=== PATIENT | male | born 1990 | race Caucasian/White ===

== ENCOUNTER 2021-02-23 16:35 | Emergency (ER) | payer OTHER, SELFPAY ==
--- NOTE | ~2021-02-23 | CT_ITS ---
EXAMINATION: CT abdomen pelvis wo con DATE: 02/23/2021 19:14 INDICATION: Nephrolithiasis presenting with left flank pain TECHNIQUE: Computed tomography (CT) of the abdomen and pelvis was performed without intravenous contr ast. Automated exposure control and iterative reconstruction technique were employed. The dose-length product was 765.31 mGy-cm. COMPARISON: 08/06/2012 FINDINGS: Lung bases are clear. Heart size is normal. No pericardial or pleural effusion. Small sliding-type hi atal hernia. Postoperative change of prior sleeve gastrectomy with suture line along the greater curv ature of the stomach. Liver, gallbladder, spleen, pancreas and bilateral adrenal glands are normal. S mall fat-containing umbilical hernia. Bowels including the appendix are normal. Bilateral nephrolithi asis with 11 stones in the left kidney measuring up to 2 mm and 6 stones in the right kidney measurin g up to 3 mm. No hydronephrosis or stones seen along the bilateral normal-appearing ureters. Bladder is normal. No free intraperitoneal gas or fluid. No pathologically enlarged abdominal or pelvic lymph adenopathy. Mild thoracic spondylosis. IMPRESSION: 1. Bilateral nonobstructing nephrolithiasis. No ureteral stones or hydronephrosis. 2. Small sliding-type hiatal hernia with change of prior sleeve gastrectomy. 3. Small fat-containing umbilical hernia.. Reviewed, dictated and finalized at location A. IMPRESSION: 1. Bilateral nonobstructing nephrolithiasis. No ureteral stones or hydronephros is. 2. Small sliding-type hiatal hernia with change of prior sleeve gastrectomy. 3. Small fat-containing umbilical hernia..
[2021-02-23 16:41] VITALS: BP 176/116; PULSE 63; RESP 18; TEMP 36.4; O2SAT 100
[2021-02-23 16:56] LABS: Basophils Absolute Auto 0.1 K/mm3 (0.0-0.1); Basophils Percent Auto 1.3 % (0.2-1.2); Eosinophils Absolute Auto 0.6 K/mm3 (0-0.3); Eosinophils Percent Auto 7.3 % (0-4.4); Hematocrit 38.8 % (42.0-52.0); Hemoglobin 12.1 g/dL (14.0-18.0); Immature Granulocyte Absolute 0.01 K/mm3 (0.00-0.031); Immature Granulocyte Percent A 0.1 % (0-0.5); Lymphocytes Absolute Auto 2.42 K/mm3 (0.9-3.2); Lymphocytes Percent Auto 31.7 % (18.3-44.2); Mean Corpuscular HGB Conc 31.2 g/dl (32-36); Mean Corpuscular Hemoglobin 26.1 pg (26-34); Mean Corpuscular Volume 83.8 fl (80-100); Mean Platelet Volume 9.5 fl (7.4-10.4); Monocytes Absolute Auto 0.6 K/mm3 (0.1-0.6); Monocytes Percent Auto 7.6 % (2.6-8.5); Platelet Count Result 344 k/mm3 (150-375); Red Blood Count 4.63 M/mm3 (4.6-6.20); Red Cell Distribution Width 14.7 % (11.5-14.5); White Blood Count 7.6 K/mm3 (4.5-10.0)
[2021-02-23 17:01] LABS: Add Urine Microscopic? YES; Appearance Urine Clear (Clear); Bilirubin Urine Negative (Negative); Blood Urine 3+ (Negative); Calcium Oxalate Crystals Urine Present /hpf; Color Urine Yellow (Yellow); Glucose Urine UA Negative (Negative); Ketones Urine Negative (Negative); Leukocyte Esterase Ur Trace LEU/UL (Negative); Nitrate Urine Negative (Negative); Protein Urine 1+ mg/dL (Negative); Squamous Epithelial Cell Urine Rare /hpf (Few); Urobilinogen Urine Negative mg/dL (<2.0)
[2021-02-23 17:06] LABS: Specific Grav Ur 1.034 (1.001-1.035)
[2021-02-23 17:07] LABS: Anion Gap 9 mmol/L (8-16); Blood Urea Nitrogen 14 mg/dL (9-20); Calcium 9.3 mg/dL (8.4-10.2); Carbon Dioxide 25 mmol/L (22-30); Chloride 106 mmol/L (98-107); Estimated CRCL calculation 147 ml/min; Estimated Glomerular Filt Rate > 60; Glucose 83 mg/dL (65-110); Potassium 4.2 mmol/L (3.4-5.0); Sodium 140 mmol/L (137-145)
[2021-02-23 18:20] VITALS: BP 155/101; PULSE 59; RESP 12; O2SAT 100
--- NOTE | 2021-02-23 19:07 | ED.GENADULT ---
HPI - General Adult General Chief complaint: Abdominal Pain Stated complaint: left flank pain Time Seen by Provider: 02/23/21 18:36 Source: patient Mode of arrival: ambulatory Limitations: no limitations History of Present Illness HPI narrative: Patient presents for evaluation of left flank pain for the last 3 to 4 days. He indicates he has a hx of kidney stones and this feels similar. However, typically pain associated with kidney stones lasts two days. He was concerned about duration of symptoms so he came here for further evaluation. Pain is constant, sharp and aching, constant in severity. No radiation component. He has experienced nausea without vomiting. No fever, chills, urinary symptoms, change in bowel pattern. Last bowel movement was 2 days ago. Surgical history is positive for gastric sleeve. He denies ETOH use. He tried taking ibuprofen and hydrocodone with modest improvement in his symptoms. Related Data Allergies Allergy/AdvReac Type Severity Reaction Status Date / Time No Known Allergies Allergy Verified 08/06/12 09:04 Review of Systems Review of Systems: CONSTITUTIONAL: Denies fever, chills, or sweats. EYES: Denies visual changes, redness, or discharge. ENT: Denies rhinorrhea, congestion, sore throat, or otalgia. CARDIOVASCULAR: Denies chest pain, palpitations, or edema. RESPIRATORY: Denies cough or dyspnea. GASTROINTESTINAL: Reports left flank pain and nausea. Denies vomiting and diarrhea GENITOURINARY: Denies dysuria or hematuria. SKIN: Denies rash or itching. MUSCULOSKELETAL: Denies back pain, joint pain, or myalgia. NEUROLOGIC: Denies headache, numbness, dizziness, or weakness. PSYCHIATRIC: Denies anxiety or depression. [facility] Past Medical History Medical History (Updated 02/23/21 @ 19:56 by ALLISON Ng, PAMELA) Anxiety Depression Hypertension Kidney stone Surgical History Surgical History History of gastric surgery Family History Family History Mother Diabetes mellitus Father Diabetes mellitus Social History Social History Substance use: never Living arrangements: with family Gender identity (if verbalized by the patient): Male Sexual Orientation (if Verbalized by the Patient): Straight or Heterosexual Spiritual care concerns: No Exam Narrative: GENERAL: Well-appearing, well-nourished, and in no acute distress. HEAD: Normocephalic, atraumatic. EYES: PERRLA and EOMI. ENT: Nares clear, no rhinorrhea or epistaxis. Mucous membranes moist. Oropharynx without tonsillar hypertrophy exudate or other lesions. Bilateral TMs pearly walker nonbulging NECK: Supple. No adenopathy or masses. No carotid bruits or JVD CHEST: Clear to auscultation. No respiratory distress. No wheezes rales or rhonchi HEART: Regular rate and rhythm. No murmur heard. Normal peripheral pulses. ABDOMEN: Soft, nondistended, normal active bowel sounds. No abdominal tenderness. No CVA tenderness EXTREMITIES: Normal range of motion. No edema. SKIN: Warm, dry, no rash. NEURO: No focal deficits. Alert and oriented x3. PSYCH: Normal mood and affect. Course Course Emergency Course: This is a 30-year-old male who presents with complaints of left flank pain. He has a history of kidney stones. CT showed multiple stones in both kidneys. Renal function was normal. He was given Toradol with mild improvement in his symptoms. We will discharge him with vamshi gilmore. Patient follow-up outpatient with urology return for worsening symptoms. Patient agreed with plan of care. Vital Signs Vital signs: Vital Signs Temperature 36.4 C 02/23/21 16:41 Pulse Rate 63 02/23/21 16:41 Respiratory Rate 18 02/23/21 16:41 Blood Pressure 176/116 H 02/23/21 16:41 Pulse Oximetry 100 02/23/21 16:41 Temperature 36.4 C 02/23
[2021-02-23 19:24] LABS: Alanine Aminotransferase 16 U/L (4-50); Albumin Level 4.3 g/dL (3.5-5.1); Alkaline Phosphatase 79 U/L (38-126); Aspartate Amino Transferase 30 U/L (17-59); Bilirubin,Total 0.2 mg/dL (0.2-1.3); Lipase 157 U/L (23-300)
[2021-02-23] MEDS: ONDANSETRON INJ 4 MG/2 ML VIAL IV PUSH (19:26)
[2021-02-23] MEDS: KETOROLAC 30 MG/ML VIAL (*BKC) IV PUSH (19:27)
[2021-02-23 20:40] VITALS: BP 163/103; PULSE 60; RESP 18; O2SAT 100
== END 2021-02-23 20:41 | disposition home or self-care (01) ==
PROVIDERS: Emergency Medicine; Emergency Provider Nurse Practitioner; PCP Nurse Practitioner Family
DX: N20.0 Calculus of kidney (principal); I10 Essential (primary) hypertension; Z87.442 Personal history of urinary calculi; Z98.84 Bariatric surgery status; K44.9 Diaphragmatic hernia without obstruction or gangrene; K42.9 Umbilical hernia without obstruction or gangrene
CPT/HCPCS: 36415; 74176; 80048; 80076; 81001; 83690; 85025; 96374; 96375; 99284; J1885; J2405

== ENCOUNTER 2021-02-28 21:23 | Emergency (ER) | payer OTHER, SELFPAY ==
--- NOTE | ~2021-02-28 | CT_ITS ---
EXAMINATION: CT abdomen pelvis wo con DATE: 02/28/2021 23:33 INDICATION: Left flank pain. History kidney stones. Hematuria. Nausea. TECHNIQUE: Computed tomography (CT) of the abdomen and pelvis was performed without intravenous contr ast. Automated exposure control and iterative reconstruction technique were employed. Exam dose: 571 .03 mGy-cm total exam DLP. COMPARISON: 02/23/2021 CT abdomen pelvis FINDINGS: The lung bases are clear. Normal heart size. No pericardial or pleural effusion. The liver, gallbladder, bile ducts, spleen, pancreas and pancreatic duct appear normal. Normal morpho logy of the adrenal glands. Bilateral nonobstructive nephrolithiasis. There are scattered bilateral small renal calculi, the larg est measuring up to approximately 4.7 mm but most of the calculi much smaller than that. No There is an approximately 2.7 mm calculus of the proximal left ureter at the L4-5 level, without hydr oureteronephrosis. The urinary bladder and prostate gland are unremarkable. Normal caliber of the abdominal aorta. No intraperitoneal or retroperitoneal or pelvic mass lesion or adenopathy or ascites. There is a small sliding hiatal hernia. There is postoperative change of the stomach. Normal appendix. No bowel obstruction or free air. Included skeletal structures are unremarkable. IMPRESSION: 7 mm proximal left ureteral calculus at L4-5 level, without hydroureteronephrosis Bilateral nonobstructive nephrolithiasis Small sliding hiatal hernia Postoperative change of the stomach Normal appendix Reviewed, dictated and finalized at [facility]. Reviewed, dictated and finalized at location A. IMPRESSION: 7 mm proximal left ureteral calculus at L4-5 level, without hydroureteronephros is Bilateral nonobstructive nephrolithiasis Small sliding hiatal hernia Postoperative change of the stomach Normal appendix
[2021-02-28 21:36] VITALS: BP 146/87; PULSE 99; RESP 18; TEMP 36.3; O2SAT 99
[2021-02-28 21:56] LABS: Basophils Absolute Auto 0.1 K/mm3 (0.0-0.1); Basophils Percent Auto 0.7 % (0.2-1.2); Eosinophils Absolute Auto 0.3 K/mm3 (0-0.3); Eosinophils Percent Auto 4.2 % (0-4.4); Hematocrit 37.7 % (42.0-52.0); Hemoglobin 11.9 g/dL (14.0-18.0); Immature Granulocyte Absolute 0.01 K/mm3 (0.00-0.031); Immature Granulocyte Percent A 0.1 % (0-0.5); Lymphocytes Percent Auto 23.3 % (18.3-44.2); Mean Corpuscular HGB Conc 31.6 g/dl (32-36); Mean Corpuscular Volume 82.5 fl (80-100); Mean Platelet Volume 10.1 fl (7.4-10.4); Monocytes Absolute Auto 0.6 K/mm3 (0.1-0.6); Monocytes Percent Auto 7.2 % (2.6-8.5); Neutrophils Absolute Auto 5.3 K/mm3 (1.3-6.7); Neutrophils Percent Auto 64.5 % (45.5-73.1); Platelet Count Result 365 k/mm3 (150-375); Red Blood Count 4.57 M/mm3 (4.6-6.20); Red Cell Distribution Width 14.6 % (11.5-14.5); White Blood Count 8.2 K/mm3 (4.5-10.0)
[2021-02-28 22:11] LABS: Anion Gap 12 mmol/L (8-16); Blood Urea Nitrogen 16 mg/dL (9-20); Carbon Dioxide 22 mmol/L (22-30); Chloride 103 mmol/L (98-107); Estimated CRCL calculation 146 ml/min; Estimated Glomerular Filt Rate > 60; Glucose 92 mg/dL (65-110); Potassium 3.7 mmol/L (3.4-5.0); Sodium 137 mmol/L (137-145)
[2021-02-28 22:16] LABS: Add Urine Microscopic? YES; Amorphous Sediment Urine Few; Appearance Urine Cloudy (Clear); Bilirubin Urine Negative (Negative); Blood Urine 3+ (Negative); Calcium Oxalate Crystals Urine Present /hpf; Color Urine Amber (Yellow); Glucose Urine UA Negative (Negative); Ketones Urine Negative (Negative); Leukocyte Esterase Ur Trace LEU/UL (Negative); Mucus Urine Heavy /lpf; Nitrate Urine Negative (Negative); Protein Urine 2+ mg/dL (Negative); RBC Urine >75 /hpf (0-2); Specific Grav Ur 1.028 (1.001-1.035); WBC Urine 0-3 /hpf
[2021-02-28 22:26] VITALS: BP 157/100; PULSE 87; RESP 18; O2SAT 98
[2021-02-28 23:33] VITALS: BP 140/106; PULSE 76; RESP 16; O2SAT 98
[2021-02-28] MEDS: MORPHINE SULFATE (*CRX) 4 MG/ML INJ IV PUSH (23:36)
[2021-02-28] MEDS: SODIUM CHLORIDE 0.9% IV 1,000 ML 999 ML IV CONT (23:36)
--- NOTE | 2021-03-01 00:26 | ED.ABDPAIN ---
HPI - Abdominal Pain General Chief Complaint: Abdominal Pain Stated Complaint: kidney stones Time Seen by Provider: 02/28/21 23:02 History of Present Illness HPI narrative: Patient presents with left flank pain. Pain reports he was seen approximately 1 week ago for similar pain and imaging is told he had kidney stones. He was initially doing okay however he had a sudden onset of pain this morning has been getting worse throughout the day so he wanted come back in for evaluation. His concern was he was passing another kidney stone. Reports some nausea but no vomiting denies any diarrhea denies any fevers denies any dysuria or hematuria. Related Data Home Medications Medication Instructions Recorded Confirmed bupropion HCl mg PO 02/28/21 bupropion HCl [Wellbutrin] 75 mg PO TID 02/28/21 clotrimazole mg 02/28/21 losartan 02/28/21 montelukast mg 02/28/21 sertraline mg 02/28/21 Allergies Allergy/AdvReac Type Severity Reaction Status Date / Time No Known Allergies Allergy Verified 02/28/21 22:28 Review of Systems Review of Systems: CONSTITUTIONAL: Denies fever, chills, or sweats. EYES: Denies visual changes, redness, or discharge. ENT: Denies rhinorrhea, congestion, sore throat, or otalgia. CARDIOVASCULAR: Denies chest pain, palpitations, or edema. RESPIRATORY: Denies cough or dyspnea. GASTROINTESTINAL: Denies vomiting, or diarrhea. GENITOURINARY: Denies dysuria or hematuria. SKIN: Denies rash or itching. MUSCULOSKELETAL: Denies joint pain, or myalgia. NEUROLOGIC: Denies headache, numbness, dizziness, or weakness. PSYCHIATRIC: Denies anxiety or depression. All systems reviewed & are unremarkable except as noted in HPI and below [facility] Past Medical History Medical History Anxiety Depression Hypertension Kidney stone Surgical History Surgical History History of gastric surgery Family History Family History Mother Diabetes mellitus Father Diabetes mellitus Social History Social History Substance use: never Gender identity (if verbalized by the patient): Male Spiritual care concerns: No Exam Narrative: GENERAL: Well-appearing, well-nourished, and in no acute distress. HEAD: Normocephalic, atraumatic. EYES: PERRLA and EOMI. ENT: Nares clear, no rhinorrhea or epistaxis. Mucous membranes moist. NECK: Supple. No masses. No JVD ABDOMEN: Soft, nontender, nondistended, normal active bowel sounds. EXTREMITIES: Normal range of motion. No edema. SKIN: Warm, dry, no rash. NEURO: No focal deficits. Alert and oriented x3. PSYCH: Normal mood and affect. Course Reevaluation(s) Reevaluation #1: Patient is resing more comfortably, results reviewed with patient. Pt has urology follow up schedule on 03/04/2021 Date: 03/01/21 Time: 00:29 Vital Signs Vital signs: Vital Signs Temperature 36.3 C L 02/28/21 21:36 Pulse Rate 99 02/28/21 21:36 Respiratory Rate 18 02/28/21 21:36 Blood Pressure 146/87 H 02/28/21 21:36 Pulse Oximetry 99 02/28/21 21:36 Temperature 36.3 C L 02/28/21 21:36 Pulse Rate 71 03/01/21 01:12 Respiratory Rate 17 03/01/21 01:12 Blood Pressure 140/91 H 03/01/21 01:12 Pulse Oximetry 100 03/01/21 01:12 MDM - Abdominal Pain MDM Narrative Medical decision making narrative: H&P as above, vs with mild hypertension, pt looks clinically well, exam pain, labs with hematuria otherwise clinically unremarkable, img with new proximal stone, additional labs/img considered, symptomatic relief available as needed, on reevaluation pt continues to looks clinically well. Suspect ureteral stone, dns infected stone. Patient is already scheduled follow-up with urology pain instructed to continue analgesia: And follow-up with urology. Lab Data Result diagr
[2021-03-01 01:12] VITALS: BP 140/91; PULSE 71; RESP 17; O2SAT 100
== END 2021-03-01 01:13 | disposition home or self-care (01) ==
PROVIDERS: Emergency Medicine; Emergency Provider Emergency Medicine; PCP Nurse Practitioner Family
DX: N20.2 Calculus of kidney with calculus of ureter (principal); I10 Essential (primary) hypertension; F41.9 Anxiety disorder, unspecified; F32.9 Major depressive disorder, single episode, unspecified; Z87.442 Personal history of urinary calculi; K44.9 Diaphragmatic hernia without obstruction or gangrene
CPT/HCPCS: 36415; 74176; 80048; 81001; 85025; 96361; 96374; 99284; J2270; J7030

== ENCOUNTER 2021-07-23 18:00 | Emergency (ER) | payer OTHER, SELFPAY ==
--- NOTE | ~2021-07-23 | CT_ITS ---
EXAMINATION: CT abdomen pelvis w con INDICATION: Left upper abdominal pain TECHNIQUE: Computed tomographic images of the abdomen and pelvis were obtained after the administrati on of 100 cc of Omnipaque 350 intravenous contrast. The dose-length product (DLP) was 1199.29 mGy-cm. Automated exposure control and iterative reconstruction technique were employed. COMPARISON: 02/28/2021 FINDINGS: The lung bases are clear. The heart size is normal. There are surgical changes of gastric s leeve procedure. The liver, spleen, pancreas, gallbladder, and adrenal glands are normal. There are n onobstructing stones of the kidneys which measure up to 3 mm on the right and 4 mm on the left. There is a 1.7 cm cyst of the left kidney. There is a 5 mm stone in the proximal right ureter at the urete ropelvic junction. There is a 4 mm stone of the left mid ureter. No pathologically enlarged abdominal or pelvic lymph nodes are identified. There is no free intraperitoneal gas or evidence of bowel obst ruction. The appendix is normal. There is a small fat-containing umbilical hernia. IMPRESSION: 1. 5 mm stone in the right proximal ureter at the ureteropelvic junction. 2. 4 mm stone of the left mid ureter. 3. Bilateral nonobstructing nephrolithiasis. Reviewed, dictated and finalized at location F. SSESSION AGENT
[2021-07-23 18:19] VITALS: BP 146/95; PULSE 81; RESP 17; TEMP 36.1; O2SAT 100
[2021-07-23 18:44] LABS: Basophils Absolute Auto 0.1 K/mm3 (0.0-0.1); Basophils Percent Auto 1.2 % (0.2-1.2); Eosinophils Absolute Auto 0.7 K/mm3 (0-0.3); Hematocrit 37.3 % (42.0-52.0); Hemoglobin 11.9 g/dL (14.0-18.0); Immature Granulocyte Absolute 0.01 K/mm3 (0.00-0.031); Immature Granulocyte Percent A 0.2 % (0-0.5); Lymphocytes Absolute Auto 1.96 K/mm3 (0.9-3.2); Lymphocytes Percent Auto 29.8 % (18.3-44.2); Mean Corpuscular HGB Conc 31.9 g/dl (32-36); Mean Corpuscular Hemoglobin 26.3 pg (26-34); Mean Corpuscular Volume 82.5 fl (80-100); Mean Platelet Volume 9.7 fl (7.4-10.4); Monocytes Absolute Auto 0.5 K/mm3 (0.1-0.6); Monocytes Percent Auto 6.8 % (2.6-8.5); Neutrophils Absolute Auto 3.4 K/mm3 (1.3-6.7); Platelet Count Result 306 k/mm3 (150-375); Red Blood Count 4.52 M/mm3 (4.6-6.20); Red Cell Distribution Width 16.1 % (11.5-14.5); White Blood Count 6.6 K/mm3 (4.5-10.0)
[2021-07-23 18:53] LABS: Add Urine Microscopic? YES; Appearance Urine Cloudy (Clear); Bilirubin Urine Negative (Negative); Blood Urine 3+ (Negative); Color Urine Red (Yellow); Glucose Urine UA Negative (Negative); Ketones Urine Negative (Negative); Leukocyte Esterase Ur Negative LEU/UL (Negative); Mucus Urine Moderate /lpf; Nitrate Urine Negative (Negative); Protein Urine 2+ mg/dL (Negative); RBC Urine >75 /hpf (0-2); Specific Grav Ur 1.028 (1.001-1.035)
[2021-07-23 18:54] LABS: Alanine Aminotransferase 23 U/L (4-50); Albumin Level 4.4 g/dL (3.5-5.1); Alkaline Phosphatase 74 U/L (38-126); Anion Gap 10 mmol/L (8-16); Aspartate Amino Transferase 31 U/L (17-59); Bilirubin,Total 0.2 mg/dL (0.2-1.3); Blood Urea Nitrogen 15 mg/dL (9-20); Calcium 9.1 mg/dL (8.4-10.2); Carbon Dioxide 24 mmol/L (22-30); Chloride 105 mmol/L (98-107); Estimated CRCL calculation 161 ml/min; Estimated Glomerular Filt Rate > 60; Glucose 86 mg/dL (65-110); Lipase 109 U/L (23-300); Potassium 4.1 mmol/L (3.4-5.0); Sodium 139 mmol/L (137-145)
[2021-07-23 20:19] VITALS: BP 159/103; PULSE 85; RESP 18; O2SAT 99
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
[2021-07-23] MEDS: SODIUM CHLORIDE 0.9% IV 1,000 ML 999 ML IV CONT (21:49)
[2021-07-23] MEDS: ONDANSETRON INJ 4 MG/2 ML VIAL IV PUSH (21:49)
[2021-07-23] MEDS: HYDROmorphone HCL INJ (*CRX) 1 MG/ML SYR IV PUSH (21:49)
[2021-07-23 21:55] VITALS: BP 151/100; PULSE 73; RESP 16; O2SAT 100
[2021-07-23] MEDS: TAMSULOSIN HCL 0.4 MG CAPSULE PO (23:21)
[2021-07-23 23:35] VITALS: PULSE 80; RESP 18
[2021-07-23] MEDS: oxyCODONE/ACETAMINOPHEN (*CRX) 5-325 MG TABLET 2 TABLET PO (23:35)
== END 2021-07-23 23:36 | disposition home or self-care (01) ==
PROVIDERS: Emergency Medicine; Emergency Provider General Practice; PCP Family Medicine
DX: N20.2 Calculus of kidney with calculus of ureter (principal); R07.81 Pleurodynia; I10 Essential (primary) hypertension; E78.2 Mixed hyperlipidemia; D64.9 Anemia, unspecified; F41.9 Anxiety disorder, unspecified; F32.A Depression, unspecified; G47.33 Obstructive sleep apnea (adult) (pediatric); Z86.16 Personal history of COVID-19; Z87.442 Personal history of urinary calculi
CPT/HCPCS: 36415; 74177; 80053; 81001; 83690; 85025; 96361; 96374; 96375; 99284; A9270; J1170; J2405; J7030; Q9967

== ENCOUNTER 2022-04-13 15:37 | Emergency (ER) | payer OTHER, SELFPAY ==
--- NOTE | ~2022-04-13 | CT_ITS ---
EXAMINATION: CT abdomen pelvis wo con DATE: 04/13/2022 16:39 INDICATION: right flank pain TECHNIQUE: Computed tomography (CT) of the abdomen and pelvis was performed without intravenous contr ast. Automated exposure control and iterative reconstruction technique were employed. The dose-length product was 480.64 mGy-cm. COMPARISON: 07/23/2021 and . FINDINGS: Lower thorax: Unremarkable Liver: Normal. Biliary/Gallbladder: Gallbladder is normal. No bile duct dilation. Pancreas: No mass or duct dilation. Spleen: Normal. Adrenals:No mass. Kidneys: Multiple nonobstructing punctate and 2-3 mm renal calculi. No suspicious mass. No hydronephr osis. GI tract: Small hiatal hernia. Prior gastric surgery. The rectum is dilated to 6.5 cm by partially fo rmed stool. Short segment circumferential wall thickening at the rectosigmoid junction. Normal append ix. Mesentery/Peritoneum: No ascites, mass, or free air. Retroperitoneum: No mass. Pelvis: No distal collecting system stone. Mild bladder wall thickening. Soft Tissues: Soft tissues and body wall unremarkable. Bones: No acute osseous finding. IMPRESSION: Short segment circumferential wall thickening at the rectosigmoid junction, likely causing or contrib uting to the apparent mild fecal impaction. This may represent infectious, inflammatory, or neoplasti c change. Recommend timely outpatient gastroenterology referral for endoscopy. Reviewed, dictated and finalized at location K. IMPRESSION: Short segment circumferential wall thickening at the rectosigmoid junction, lik joo causing or contributing to the apparent mild fecal impaction. This may repr esent infectious, inflammatory, or neoplastic change. Recommend timely outpatie nt gastroenterology referral for endoscopy.
[2022-04-13 15:45] VITALS: BP 156/105; PULSE 85; RESP 16; TEMP 36.4; O2SAT 100
[2022-04-13 15:55] LABS: Appearance Urine Clear (Clear); Bilirubin Urine Negative (Negative); Blood Urine 1+ (Negative); Color Urine Yellow (Yellow); Glucose Urine UA Negative (Negative); Ketones Urine Negative (Negative); Leukocyte Esterase Ur Negative LEU/UL (Negative); Nitrate Urine Negative (Negative); Protein Urine Negative (Negative); Urobilinogen Urine 0.2 mg/dL (<2.0)
--- NOTE | 2022-04-13 16:00 | ED.BACK ---
HPI - Back Pain/Injury General Chief Complaint: Back Pain/Injury Stated Complaint: middle back pain Time Seen by Provider: 04/13/22 15:41 History of Present Illness HPI Narrative: 31-year-old male with a history of kidney stones and back pain presents to the emergency room with a sudden onset of right flank pain. Patient states he recently passed a kidney stone and believes he may be experiencing another. Patient states the pain Radiates around to the front. Related Data Home Medications Medication Instructions Recorded Confirmed buspirone 15 mg tablet 15 mg PO TID 04/18/21 05/23/21 Allergies Allergy/AdvReac Type Severity Reaction Status Date / Time No Known Allergies Allergy Verified 04/13/22 15:50 Review of Systems Review of Systems: CONSTITUTIONAL: Denies fever, chills, or sweats. EYES: Denies visual changes, redness, or discharge. ENT: Denies rhinorrhea, congestion, sore throat, or otalgia. CARDIOVASCULAR: Denies chest pain, palpitations, or edema. RESPIRATORY: Denies cough or dyspnea. GASTROINTESTINAL: Reports right flank pain, nausea GENITOURINARY: Denies dysuria or hematuria. SKIN: Denies rash or itching. MUSCULOSKELETAL: Denies back pain, joint pain, or myalgia. NEUROLOGIC: Denies headache, numbness, dizziness, or weakness. PSYCHIATRIC: Denies anxiety or depression. [facility] Past Medical History Medical History (Updated 09/23/21 @ 12:32 by Willam Wright MD) Acute non-recurrent maxillary sinusitis Adult BMI 38.0-38.9 kg/sq m Anemia (02/23/21) hemoglobin 12.1 with hematocrit 38.8 and MCV 83.8 in the ER on 03/26/2021 Anxiety BMI 37.0-37.9, adult Chronic low back pain without sciatica Chronic thoracic back pain COVID-19 (~08/17/20) COVID illness around 08/17/2020 with subsequent vaccination with 3 shots of Pfizer Depression Hypertension Kidney stone Migraine without aura and without status migrainosus, not intractable Mixed hyperlipidemia Obstructive sleep apnea Radiculitis of left cervical region Surgical History Surgical History History of gastric surgery Family History Family History Mother Diabetes mellitus Father Diabetes mellitus Social History Social History Smoking status: Never smoker Alcohol intake: never Substance use: never Substance use type: does not use Gender identity (if verbalized by the patient): Male Sexual Orientation (if Verbalized by the Patient): Straight or Heterosexual Spiritual care concerns: No Exam Narrative: GENERAL: Well-appearing, well-nourished, no physical limitations, and in no acute distress. HEAD: Normocephalic, atraumatic. EYES: Conjunctivae normal, PERRLA and EOMI. CHEST: Clear to auscultation. No respiratory distress. No wheezes rales or rhonchi. HEART: Regular rate and rhythm. No murmur heard. Normal peripheral pulses. ABDOMEN: Soft, nontender, nondistended, normal active bowel sounds. BACK: Right CVA tenderness; No cervical/thoracic/lumbar tenderness EXTREMITIES: Normal range of motion. No edema. No clubbing or cyanosis SKIN: Warm, dry, no rash. No noted wounds NEURO: No focal deficits. Alert and oriented x3. MAEW. CN's II-XI intact bilaterally, normal gait PSYCH: Cooperative. Normal mood and affect. Course Vital Signs Vital signs: Vital Signs Temperature 36.4 C L 04/13/22 15:45 Pulse Rate 85 04/13/22 15:45 Respiratory Rate 16 04/13/22 15:45 Blood Pressure 156/105 H 04/13/22 15:45 Pulse Oximetry 100 04/13/22 15:45 Temperature 36.4 C L 04/13/22 15:45 Pulse Rate 85 04/13/22 15:45 Respiratory Rate 16 04/13/22 15:45 Blood Pressure 156/105 H 04/13/22 15:45 Pulse Oximetry 100 04/13/22 15:45 MDM - Back Pain/Injury Lab Data Labs: Lab Results 04/13/22 Range/Units 15:47 Urine Color Yellow (Yellow) Urine Ap
[2022-04-13 16:02] LABS: Mucus Urine Rare /lpf; RBC Urine 21-50 /hpf (0-2); WBC Urine 0-3 /hpf
[2022-04-13 16:10] LABS: Add Urine Microscopic? YES
[2022-04-13 16:20] LABS: Basophils Absolute Auto 0.1 K/mm3 (0.0-0.1); Eosinophils Absolute Auto 0.2 K/mm3 (0-0.3); Eosinophils Percent Auto 3.7 % (0-4.4); Hemoglobin 10.6 g/dL (14.0-18.0); Immature Granulocyte Absolute 0.01 K/mm3 (0.00-0.031); Immature Granulocyte Percent A 0.2 % (0-0.5); Lymphocytes Absolute Auto 1.57 K/mm3 (0.9-3.2); Lymphocytes Percent Auto 25.5 % (18.3-44.2); Mean Corpuscular HGB Conc 30.3 g/dl (32-36); Mean Corpuscular Hemoglobin 25.3 pg (26-34); Mean Corpuscular Volume 83.5 fl (80-100); Monocytes Absolute Auto 0.5 K/mm3 (0.1-0.6); Monocytes Percent Auto 7.3 % (2.6-8.5); Neutrophils Absolute Auto 3.8 K/mm3 (1.3-6.7); Neutrophils Percent Auto 62.3 % (45.5-73.1); Platelet Count Result 374 k/mm3 (150-375); Red Blood Count 4.19 M/mm3 (4.6-6.20); Red Cell Distribution Width 14.4 % (11.5-14.5); White Blood Count 6.2 K/mm3 (4.5-10.0)
[2022-04-13 16:29] LABS: Alanine Aminotransferase 18 U/L (6-50); Albumin Level 4.4 g/dL (3.5-5.1); Alkaline Phosphatase 58 U/L (38-126); Anion Gap 10 mmol/L (8-16); Aspartate Amino Transferase 27 U/L (17-59); Bilirubin,Total 0.6 mg/dL (0.2-1.3); Blood Urea Nitrogen 10 mg/dL (9-20); Carbon Dioxide 27 mmol/L (22-30); Chloride 103 mmol/L (98-107); Estimated CRCL calculation 143 ml/min; Estimated Glomerular Filt Rate > 60; Glucose 94 mg/dL (65-110); Potassium 3.5 mmol/L (3.4-5.0); Sodium 140 mmol/L (137-145)
[2022-04-13] MEDS: SODIUM CHLORIDE 0.9% IV 1,000 ML 999 ML IV CONT (16:31)
[2022-04-13] MEDS: ONDANSETRON INJ 4 MG/2 ML VIAL IV PUSH (17:05)
[2022-04-13] MEDS: KETOROLAC 30 MG/ML VIAL (*BKC) IV PUSH (17:05)
[2022-04-13 18:27] VITALS: BP 142/86; PULSE 86; RESP 16; O2SAT 99
== END 2022-04-13 18:28 | disposition home or self-care (01) ==
PROVIDERS: Emergency Provider Nurse Practitioner Family; PCP Nurse Practitioner Family
DX: K59.00 Constipation, unspecified (principal); D64.9 Anemia, unspecified; I10 Essential (primary) hypertension; E78.2 Mixed hyperlipidemia; G47.33 Obstructive sleep apnea (adult) (pediatric); F41.9 Anxiety disorder, unspecified; F32.A Depression, unspecified; Z86.16 Personal history of COVID-19; Z87.442 Personal history of urinary calculi
CPT/HCPCS: 36415; 74176; 80053; 81001; 85025; 96361; 96374; 96375; 99284; J1885; J2405; J7030

== ENCOUNTER 2022-07-19 17:09 | Emergency (ER) | payer OTHER, SELFPAY ==
--- NOTE | ~2022-07-19 | CT_ITS ---
EXAMINATION: CT abdomen pelvis wo con DATE: 07/19/2022 17:48 INDICATION: rt flank pain, hx of kidney stones TECHNIQUE: Computed tomography (CT) of the abdomen and pelvis was performed without intravenous contr ast. Automated exposure control and iterative reconstruction technique were employed. The dose-length product was 466.12 mGy-cm. COMPARISON: 04/13/2022. FINDINGS: Lower thorax: Small hiatal hernia. Liver: Normal. Biliary/Gallbladder: Gallbladder is normal. No bile duct dilation. Pancreas: No mass or duct dilation. Spleen: Normal. Adrenals:No mass. Kidneys: Multiple nonobstructing bilateral renal calcifications. Mild proximal right hydronephrosis. 4 mm proximal right ureteral stone GI tract: Prior gastric surgery. No small or large bowel dilation. Improved rectosigmoid wall thicken ing. Normal appendix. Mesentery/Peritoneum: No ascites, mass, or free air. Retroperitoneum: No mass. Pelvis: Pelvic organs are within normal limits. Soft Tissues: Soft tissues and body wall unremarkable. Bones: No acute osseous finding. IMPRESSION: 4 mm proximal right ureteral stone causing mild obstructive uropathy. Reviewed, dictated and finalized at location K. CULOTHERAPIST
[2022-07-19 17:12] VITALS: BP 159/79; PULSE 92; RESP 16; TEMP 36.6; O2SAT 98
--- NOTE | 2022-07-19 17:24 | ED.MALEGU ---
HPI - Male Genitourinary General Chief complaint: Urogenital-Male Stated complaint: kidney stone Time Seen by Provider: 07/19/22 17:18 History of Present Illness HPI Narrative: 32-year-old male history of kidney stones, hypertension, anxiety depression, YANETH presents to the emergency room for evaluation of sudden onset of right flank pain. States pain has been present for 2 to 3 hours, radiates into his right groin. Reports he noticed hematuria last night. Last kidney stone was about 4 months ago. Associated with nausea and occasional vomiting. Related Data Home Medications Medication Instructions Recorded Confirmed buspirone 15 mg tablet 15 mg PO TID 04/18/21 05/23/21 Allergies Allergy/AdvReac Type Severity Reaction Status Date / Time No Known Allergies Allergy Verified 04/13/22 15:50 Review of Systems Review of Systems: CONSTITUTIONAL: Denies fever, chills, or sweats. EYES: Denies visual changes, redness, or discharge. ENT: Denies rhinorrhea, congestion, sore throat, or otalgia. CARDIOVASCULAR: Denies chest pain, palpitations, or edema. RESPIRATORY: Denies cough or dyspnea. GASTROINTESTINAL: Reports right flank pain, nausea, vomiting GENITOURINARY: Denies dysuria or hematuria. SKIN: Denies rash or itching. MUSCULOSKELETAL: Denies back pain, joint pain, or myalgia. NEUROLOGIC: Denies headache, numbness, dizziness, or weakness. PSYCHIATRIC: Denies anxiety or depression. [facility] Past Medical History Medical History Acute non-recurrent maxillary sinusitis Adult BMI 38.0-38.9 kg/sq m Anemia (02/23/21) hemoglobin 12.1 with hematocrit 38.8 and MCV 83.8 in the ER on 03/26/2021 Anxiety BMI 37.0-37.9, adult Chronic low back pain without sciatica Chronic thoracic back pain COVID-19 (~08/17/20) COVID illness around 08/17/2020 with subsequent vaccination with 3 shots of Pfizer Depression Hypertension Kidney stone Migraine without aura and without status migrainosus, not intractable Mixed hyperlipidemia Obstructive sleep apnea Radiculitis of left cervical region Surgical History Surgical History History of gastric surgery Family History Family History Mother Diabetes mellitus Father Diabetes mellitus Social History Social History Smoking status: Never smoker Alcohol intake: never Substance use: never Substance use type: does not use Gender identity (if verbalized by the patient): Male Sexual Orientation (if Verbalized by the Patient): Straight or Heterosexual Spiritual care concerns: No Exam Narrative: GENERAL: Uncomfortable appearing HEAD: Normocephalic, atraumatic. EYES: Conjunctivae normal, PERRLA and EOMI. CHEST: Clear to auscultation. No respiratory distress. No wheezes rales or rhonchi. HEART: Regular rate and rhythm. No murmur heard. Normal peripheral pulses. ABDOMEN: Soft, nontender, nondistended, normal active bowel sounds. BACK: Right CVA tenderness EXTREMITIES: Normal range of motion. No edema. No clubbing or cyanosis SKIN: Warm, dry, no rash. No noted wounds NEURO: No focal deficits. Alert and oriented x3. MAEW. CN's II-XI intact bilaterally, normal gait PSYCH: Cooperative. Normal mood and affect. Course Course Emergency Course: 1939: Consulted with MD Bravo. He recommends patient be admitted for overnight observation. Discussed with Dr. Bravo that the patient was adamant about going home. He stated he will attempt to see the patient in his office on Thursday. Vital Signs Vital signs: Vital Signs Temperature 36.6 C 07/19/22 17:12 Pulse Rate 92 07/19/22 17:12 Respiratory Rate 16 07/19/22 17:12 Blood Pressure 159/79 H 07/19/22 17:12 Pulse Oximetry 98 07/19/22 17:12 Temperature 36.6 C 07/19/22 17:12 Pulse Rate 92 07/19/22 17
[2022-07-19] MEDS: ONDANSETRON INJ 4 MG/2 ML VIAL IV PUSH (18:00)
[2022-07-19] MEDS: SODIUM CHLORIDE 0.9% IV 1,000 ML 999 ML IV CONT ×2 (18:00→19:06)
[2022-07-19] MEDS: KETOROLAC 30 MG/ML VIAL (*BKC) IV PUSH (18:00)
[2022-07-19] MEDS: HYDROmorphone HCL INJ (*CRX) 1 MG/ML SYR IV PUSH (18:00)
[2022-07-19 18:01] LABS: Add Urine Microscopic? YES; Appearance Urine Clear (Clear); Bilirubin Urine 1+ (Negative); Blood Urine 3+ (Negative); Color Urine Yellow (Yellow); Glucose Urine UA Negative (Negative); Ketones Urine Negative (Negative); Leukocyte Esterase Ur Negative LEU/UL (Negative); Nitrate Urine Positive (Negative); Protein Urine 1+ mg/dL (Negative); Specific Grav Ur >= 1.030 (1.001-1.035); pH Urine 5.5 (5.0-9.0)
[2022-07-19 18:10] LABS: Basophils Absolute Auto 0.1 K/mm3 (0.0-0.1); Basophils Percent Auto 0.9 % (0.2-1.2); Eosinophils Absolute Auto 0.6 K/mm3 (0-0.3); Eosinophils Percent Auto 7.1 % (0-4.4); Hematocrit 42.3 % (42.0-52.0); Hemoglobin 13.4 g/dL (14.0-18.0); Immature Granulocyte Absolute 0.02 K/mm3 (0.00-0.031); Immature Granulocyte Percent A 0.3 % (0-0.5); Lymphocytes Absolute Auto 1.88 K/mm3 (0.9-3.2); Lymphocytes Percent Auto 24.3 % (18.3-44.2); Mean Corpuscular HGB Conc 31.7 g/dl (32-36); Mean Corpuscular Hemoglobin 28.3 pg (26-34); Mean Corpuscular Volume 89.2 fl (80-100); Mean Platelet Volume 9.8 fl (7.4-10.4); Monocytes Absolute Auto 0.5 K/mm3 (0.1-0.6); Monocytes Percent Auto 6.5 % (2.6-8.5); Neutrophils Absolute Auto 4.7 K/mm3 (1.3-6.7); Neutrophils Percent Auto 60.9 % (45.5-73.1); Platelet Count Result 286 k/mm3 (150-375); Red Blood Count 4.74 M/mm3 (4.6-6.20); Red Cell Distribution Width 16.5 % (11.5-14.5); White Blood Count 7.7 K/mm3 (4.5-10.0)
[2022-07-19 18:13] LABS: Mucus Urine Rare /lpf; RBC Urine >75 /hpf (0-2); WBC Urine 0-3 /hpf
[2022-07-19 18:23] LABS: Alanine Aminotransferase 38 U/L (6-50); Albumin Level 4.6 g/dL (3.5-5.1); Alkaline Phosphatase 70 U/L (38-126); Anion Gap 9 mmol/L (8-16); Aspartate Amino Transferase 45 U/L (17-59); Bilirubin,Total 0.3 mg/dL (0.2-1.3); Blood Urea Nitrogen 14 mg/dL (9-20); Carbon Dioxide 28 mmol/L (22-30); Chloride 99 mmol/L (98-107); Estimated CRCL calculation 141 ml/min; Estimated Glomerular Filt Rate > 60; Glucose 93 mg/dL (65-110); Potassium 4.8 mmol/L (3.4-5.0); Sodium 136 mmol/L (137-145)
[2022-07-19] MEDS: HYDROmorphone HCL INJ (*CRX) 1 MG/ML SYR 0.5 MG IV PUSH (19:23)
[2022-07-19 19:30] VITALS: BP 136/84; PULSE 85; RESP 18; TEMP 36.4; O2SAT 99
[2022-07-19 20:07] VITALS: BP 126/76; PULSE 84; RESP 18; TEMP 36.8; O2SAT 99
== END 2022-07-19 20:09 | disposition home or self-care (01) ==
PROVIDERS: Emergency Medicine; Emergency Provider Nurse Practitioner Family
DX: N13.9 Obstructive and reflux uropathy, unspecified (principal); N20.1 Calculus of ureter; N39.0 Urinary tract infection, site not specified; I10 Essential (primary) hypertension; E78.2 Mixed hyperlipidemia; D64.9 Anemia, unspecified; G47.33 Obstructive sleep apnea (adult) (pediatric); F41.9 Anxiety disorder, unspecified; F32.A Depression, unspecified; Z87.442 Personal history of urinary calculi; Z86.16 Personal history of COVID-19
CPT/HCPCS: 36415; 74176; 80053; 81001; 85025; 96361; 96365; 96375; 96376; 99284; J0696; J1170; J1885; J2405; J7030

== ENCOUNTER 2022-07-29 13:20 | Emergency (ER) | payer OTHER, SELFPAY ==
[2022-07-29] VITALS (17 sets, daily range): BP systolic 135–178; BP diastolic 97–110; PULSE 88; RESP 14; TEMP 36.4; O2SAT 95–100
--- NOTE | ~2022-07-29 | CT_ITS ---
EXAMINATION: CT abdomen pelvis wo con DATE: 07/29/2022 15:06 INDICATION: Right flank pain. TECHNIQUE: Computed tomography (CT) of the abdomen and pelvis was performed without intravenous contr ast. Automated exposure control and iterative reconstruction technique were employed. The dose-length product was 1097.80 mGy-cm. COMPARISON: CT abdomen and pelvis 07/19/2022 FINDINGS: The visualized portions of the lung bases demonstrate a cavitary 12 mm nodule in right lowe r lobe, worsened from 07/19/22. There is a 4 mm nodule in right middle lobe, likely benign. No pleural effusion. The heart size is normal. No pericardial effusion. There is a small sliding hiatal hernia. There are changes of gastric sleeve procedure. The liver, gallbladder, spleen, pancreas, and adrenal glands are normal. There are approximately 5 stones in right kidney measuring up to 5 mm. There are a pproximately 10 stones in left kidney measuring up to 3 mm. The ureters are normal. There are no dila niles loops of bowel. The appendix is normal. There are no pathologically enlarged lymph nodes. There i s no free intraperitoneal fluid. There is mild thoracolumbar spondylosis. IMPRESSION: 1. Bilateral nonobstructing kidney stones. 2. 12 mm cavitary nodule in right lung lower lobe, worsened from 07/19/2022, likely infection such as a septic embolus. Reviewed, dictated and finalized at location A. RING STAFF MEMBER IMPRESSION: 1. Bilateral nonobstructing kidney stones. 2. 12 mm cavitary nodule in right lung lower lobe, worsened from 07/19/2022, like ly infection such as a septic embolus.
--- NOTE | ~2022-07-29 | US_ITS ---
EXAMINATION: US scrotum doppler DATE: 07/29/2022 16:51 INDICATION: Burning bilateral testicular pain. TECHNIQUE: Grayscale and Doppler ultrasound images of the testes were obtained. COMPARISON: Ultrasound 03/04/2012 FINDINGS: The right testis measures 4.7 x 2.4 x 3.3 cm. The left testis measures 4.9 x 2.0 x 3.6 cm. There is normal vascular flow to both testes. The right epididymis is not well visualized, but is nor mal. The left epididymis is normal with normal vascular flow. There is no varicocele or hydrocele. IMPRESSION: 1. Normal testes. Reviewed, dictated and finalized at location A. ECTOR PROCESS IMPRESSION: 1. Normal testes.
--- NOTE | 2022-07-29 14:26 | ED.ABDPAIN ---
HPI - Abdominal Pain General Chief Complaint: Abdominal Pain Stated Complaint: abdominal pain, possible kidney stone Time Seen by Provider: 07/29/22 14:08 History of Present Illness HPI narrative: Patient is a 32-year-old male with a history of kidney stones presenting with right flank pain. Patient states that he was here about a week and a half ago and was diagnosed with bilateral kidney stones. States he was also diagnosed with a UTI at that time. Patient went home on antibiotics which he completed. States that unfortunately his right flank pain has persisted. States that he sometimes will have left testicular pain that then radiates into his right flank pain states that it feels just like his prior episodes of kidney stones. States he is out of pain medication at home. He denies testicular swelling or erythema. He reports ongoing dysuria as well. No fevers, chest pain, shortness of breath, vomiting, diarrhea. Does report some nausea. Related Data Home Medications Medication Instructions Recorded Confirmed buspirone 15 mg tablet 15 mg PO TID 04/18/21 05/23/21 Allergies Allergy/AdvReac Type Severity Reaction Status Date / Time No Known Allergies Allergy Verified 07/29/22 14:54 Review of Systems Review of Systems: All systems reviewed & are unremarkable except as noted in HPI and below PMFSH Past Medical History Medical History Acute non-recurrent maxillary sinusitis Adult BMI 38.0-38.9 kg/sq m Anemia (02/23/21) hemoglobin 12.1 with hematocrit 38.8 and MCV 83.8 in the ER on 03/26/2021 Anxiety BMI 37.0-37.9, adult Chronic low back pain without sciatica Chronic thoracic back pain COVID-19 (~08/17/20) COVID illness around 08/17/2020 with subsequent vaccination with 3 shots of Pfizer Depression Hypertension Kidney stone Migraine without aura and without status migrainosus, not intractable Mixed hyperlipidemia Obstructive sleep apnea Radiculitis of left cervical region Surgical History Surgical History History of gastric surgery Family History Family History Mother Diabetes mellitus Father Diabetes mellitus Social History Social History Smoking status: Never smoker Alcohol intake: never Substance use: never Substance use type: does not use Gender identity (if verbalized by the patient): Male Sexual Orientation (if Verbalized by the Patient): Straight or Heterosexual Spiritual care concerns: No Exam Narrative: GENERAL: Well-appearing, well-nourished, and in no acute distress. HEAD: Normocephalic, atraumatic. EYES: PERRLA and EOMI. ENT: Nares clear, no rhinorrhea or epistaxis. Mucous membranes moist. NECK: Supple. CHEST: Clear to auscultation. No respiratory distress. HEART: Regular rate and rhythm. No murmur heard. Normal peripheral pulses. ABDOMEN: Soft, nontender, nondistended EXTREMITIES: Normal range of motion. No edema. SKIN: Warm, dry, no rash. NEURO: No focal deficits. Alert and oriented x3. PSYCH: Normal mood and affect. Course Vital Signs Vital signs: Vital Signs Temperature 97.6 F 07/29/22 14:02 Pulse Rate 88 07/29/22 14:02 Respiratory Rate 14 07/29/22 14:02 Blood Pressure 178/110 H 07/29/22 14:02 Pulse Oximetry 97 07/29/22 14:02 Temperature 97.6 F 07/29/22 14:02 Pulse Rate 88 07/29/22 14:02 Respiratory Rate 14 07/29/22 14:02 Blood Pressure 148/97 H 07/29/22 14:46 Pulse Oximetry 99 07/29/22 17:00 MDM - Abdominal Pain MDM Narrative Medical decision making narrative: Patient is a 32-year-old male presenting with flank pain and dysuria. Patient is hypertensive, though his vitals are within normal limits. Blood work is unremarkable. CT abdomen pelvis shows renal stones but no ureteral stones.
[2022-07-29 14:36] LABS: Basophils Absolute Auto 0.1 K/mm3 (0.0-0.1); Basophils Percent Auto 1.1 % (0.2-1.2); Eosinophils Absolute Auto 0.5 K/mm3 (0-0.3); Eosinophils Percent Auto 5.7 % (0-4.4); Hematocrit 44.5 % (42.0-52.0); Hemoglobin 14.3 g/dL (14.0-18.0); Immature Granulocyte Absolute 0.02 K/mm3 (0.00-0.031); Immature Granulocyte Percent A 0.3 % (0-0.5); Lymphocytes Absolute Auto 1.59 K/mm3 (0.9-3.2); Lymphocytes Percent Auto 20.1 % (18.3-44.2); Mean Corpuscular HGB Conc 32.1 g/dl (32-36); Mean Corpuscular Hemoglobin 28.5 pg (26-34); Mean Corpuscular Volume 88.8 fl (80-100); Mean Platelet Volume 9.5 fl (7.4-10.4); Monocytes Absolute Auto 0.4 K/mm3 (0.1-0.6); Monocytes Percent Auto 5.2 % (2.6-8.5); Neutrophils Absolute Auto 5.4 K/mm3 (1.3-6.7); Neutrophils Percent Auto 67.6 % (45.5-73.1); Platelet Count Result 342 k/mm3 (150-375); Red Blood Count 5.01 M/mm3 (4.6-6.20); White Blood Count 7.9 K/mm3 (4.5-10.0)
[2022-07-29 14:51] LABS: Alanine Aminotransferase 27 U/L (6-50); Albumin Level 4.5 g/dL (3.5-5.1); Alkaline Phosphatase 66 U/L (38-126); Anion Gap 4 mmol/L (8-16); Aspartate Amino Transferase 39 U/L (17-59); Bilirubin,Total 0.3 mg/dL (0.2-1.3); Blood Urea Nitrogen 11 mg/dL (9-20); Calcium 9.4 mg/dL (8.4-10.2); Carbon Dioxide 32 mmol/L (22-30); Chloride 101 mmol/L (98-107); Estimated CRCL calculation 160 ml/min; Estimated Glomerular Filt Rate > 60; Glucose 95 mg/dL (65-110); Potassium 4.5 mmol/L (3.4-5.0); Sodium 137 mmol/L (137-145)
[2022-07-29 14:53] LABS: Bacteria Urine Trace /hpf; Mucus Urine Rare /lpf; WBC Urine 0-3 /hpf
[2022-07-29] MEDS: ONDANSETRON INJ 4 MG/2 ML VIAL IV PUSH (14:54)
[2022-07-29] MEDS: HYDROmorphone HCL INJ (*CRX) 1 MG/ML SYR 0.5 MG IV PUSH (14:54)
[2022-07-29] MEDS: SODIUM CHLORIDE 0.9% IV 1,000 ML 999 ML IV CONT (14:54)
[2022-07-29 14:59] LABS: Appearance Urine Clear (Clear); Bilirubin Urine Negative (Negative); Blood Urine Trace-intact (Negative); Color Urine Yellow (Yellow); Glucose Urine UA Negative (Negative); Ketones Urine Negative (Negative); Leukocyte Esterase Ur Negative LEU/UL (Negative); Nitrate Urine Negative (Negative); Protein Urine Negative (Negative); Urobilinogen Urine 0.2 mg/dL (<2.0)
[2022-07-29 15:04] LABS: Add Urine Microscopic? YES
== END 2022-07-29 17:48 | disposition home or self-care (01) ==
PROVIDERS: Emergency Provider Emergency Medicine; PCP Internal Medicine
DX: R30.0 Dysuria (principal); N50.812 Left testicular pain; R10.9 Unspecified abdominal pain; I10 Essential (primary) hypertension; E78.2 Mixed hyperlipidemia; F32.A Depression, unspecified; F41.9 Anxiety disorder, unspecified; G47.33 Obstructive sleep apnea (adult) (pediatric); Z86.16 Personal history of COVID-19; Z86.2 Personal history of diseases of the blood and blood-forming organs and certain disorders involving the immune mechanism; Z87.442 Personal history of urinary calculi; R91.1 Solitary pulmonary nodule; N20.0 Calculus of kidney
CPT/HCPCS: 36415; 74176; 76870; 80053; 81001; 85025; 93976; 96361; 96374; 96375; 99284; J1170; J2405; J7030

== ENCOUNTER 2023-04-19 04:46 | Emergency (ER) | payer SELFPAY ==
--- NOTE | ~2023-04-19 | CT_ITS ---
EXAMINATION: CT abdomen pelvis wo con DATE: 04/19/2023 06:12 INDICATION: Left flank pain TECHNIQUE: Computed tomography (CT) of the abdomen and pelvis was performed without intravenous contr ast. Automated exposure control and iterative reconstruction technique were employed. Exam dose: 164 4.06 mGy-cm total exam DLP. COMPARISON: 07/29/2022 CT abdomen pelvis FINDINGS: Mild residual probable scarring in the posterior medial right lung base at site of former 1 2 mm cavitary nodule noted on 07/29/2022. The lung bases are otherwise clear. Normal heart size. No pericardial or pleural effusion. There is fluid in the distal esophagus and thickening of the wall of distal esophagus suggesting esop hageal reflux and esophagitis. Small sliding hiatal hernia. There is postoperative change of the stom ach. The liver, gallbladder, bile ducts, pancreas, pancreatic duct and adrenal glands are unremarkable. There is an approximately 5.4 mm obstructing calculus of the left ureter at the upper sacral level wi th moderately prominent left hydronephrosis and prominent left nephromegaly and perinephric stranding . There are multiple bilateral nonobstructing renal calculi. Moderate diffuse thickening of bladder wal l which may be due to mild prostatomegaly are under distention of the urinary bladder. Cystitis is no t excluded. Normal caliber of the abdominal aorta. No intraperitoneal or retroperitoneal or pelvic mass lesion or adenopathy or ascites is detected. Normal appendix. No bowel obstruction, bowel wall thickening, pneumatosis or intraperitoneal free air . Small fat-containing umbilical hernia. Included skeletal structures are unremarkable. IMPRESSION: Approximately 5.4 mm obstructing left ureteral calculus at the upper sacral level with p rominent left nephromegaly, left perinephric stranding and mildly prominent left hydronephrosis Bilateral nonobstructive nephrolithiasis Normal appendix Postoperative change of the stomach Small sliding hiatal hernia Fluid in the distal esophagus and the thickening of the distal esophageal wall suggesting gastroesoph ageal reflux and esophagitis Reviewed, dictated and finalized at Location A. Reviewed, dictated and finalized at location A. IMPRESSION: Approximately 5.4 mm obstructing left ureteral calculus at the upp er sacral level with prominent left nephromegaly, left perinephric stranding an d mildly prominent left hydronephrosis Bilateral nonobstructive nephrolithiasis Normal appendix Postoperative change of the stomach Small sliding hiatal hernia Fluid in the distal esophagus and the thickening of the distal esophageal wall suggesting gastroesophageal reflux and esophagitis
[2023-04-19 04:48] VITALS: BP 136/108; PULSE 82; RESP 20; TEMP 36.5; O2SAT 100
[2023-04-19 05:13] LABS: Basophils Absolute Auto 0.1 K/mm3 (0.0-0.1); Eosinophils Absolute Auto 0.6 K/mm3 (0-0.3); Eosinophils Percent Auto 7.4 % (0-4.4); Hematocrit 38.3 % (42.0-52.0); Hemoglobin 12.5 g/dL (14.0-18.0); Immature Granulocyte Absolute 0.03 K/mm3 (0.00-0.031); Immature Granulocyte Percent A 0.4 % (0-0.5); Lymphocytes Absolute Auto 2.17 K/mm3 (0.9-3.2); Lymphocytes Percent Auto 26.6 % (18.3-44.2); Mean Corpuscular HGB Conc 32.6 g/dl (32-36); Mean Corpuscular Hemoglobin 31.3 pg (26-34); Mean Corpuscular Volume 95.8 fl (80-100); Mean Platelet Volume 9.5 fl (7.4-10.4); Monocytes Absolute Auto 0.7 K/mm3 (0.1-0.6); Monocytes Percent Auto 8.2 % (2.6-8.5); Neutrophils Absolute Auto 4.6 K/mm3 (1.3-6.7); Neutrophils Percent Auto 56.4 % (45.5-73.1); Platelet Count Result 304 k/mm3 (150-375); Red Cell Distribution Width 12.4 % (11.5-14.5); White Blood Count 8.2 K/mm3 (4.5-10.0)
[2023-04-19 05:14] LABS: Appearance Urine Clear (Clear); Bilirubin Urine Negative (Negative); Blood Urine 2+ (Negative); Color Urine Yellow (Yellow); Glucose Urine UA Negative (Negative); Ketones Urine Negative (Negative); Leukocyte Esterase Ur Negative LEU/UL (Negative); Nitrate Urine Negative (Negative); Protein Urine Negative (Negative); Specific Grav Ur >= 1.030 (1.001-1.035); Urobilinogen Urine 0.2 mg/dL (<2.0); pH Urine 5.5 (5.0-9.0)
--- NOTE | 2023-04-19 05:16 | ED.ABDPAIN ---
HPI - Abdominal Pain General Chief Complaint: Abdominal Pain Stated Complaint: kidney stones, left flank pain to groin Time Seen by Provider: 04/19/23 04:48 History of Present Illness HPI narrative: 32-year-old male with history of kidney stones presented to the ED for evaluation of left flank pain. Patient states that he did follow-up with [facility] yesterday and was diagnosed with a 5 mm left-sided ureteral calculi. Patient was treated with Dilaudid and Toradol in the ED and discharged home with Flomax and Toradol. Patient did not get a chance to fill the prescription. At home patient did take his home Dawn for pain control without improvement. Patient presents to the ED complaining of worsening nausea and pain. Patient has had follow-up with Dr. Bravo previously Related Data Home Medications Medication Instructions Recorded Confirmed buspirone 15 mg tablet 15 mg PO TID 04/18/21 05/23/21 Allergies Allergy/AdvReac Type Severity Reaction Status Date / Time No Known Allergies Allergy Verified 07/29/22 14:54 Review of Systems Review of Systems: All systems reviewed & are unremarkable except as noted in HPI and below PMFSH Past Medical History Medical History Acute non-recurrent maxillary sinusitis Adult BMI 38.0-38.9 kg/sq m Anemia (02/23/21) hemoglobin 12.1 with hematocrit 38.8 and MCV 83.8 in the ER on 03/26/2021 Anxiety BMI 37.0-37.9, adult Chronic low back pain without sciatica Chronic thoracic back pain COVID-19 (~08/17/20) COVID illness around 08/17/2020 with subsequent vaccination with 3 shots of Pfizer Depression Hypertension Kidney stone Migraine without aura and without status migrainosus, not intractable Mixed hyperlipidemia Obstructive sleep apnea Radiculitis of left cervical region Surgical History Surgical History History of gastric surgery Family History Family History Mother Diabetes mellitus Father Diabetes mellitus Social History Social History Smoking status: Never smoker Alcohol intake: never Substance use: never Substance use type: does not use Living arrangements: with family Gender identity (if verbalized by the patient): Male Sexual Orientation (if Verbalized by the Patient): Straight or Heterosexual Spiritual care concerns: No Exam Narrative: APPEARANCE: Distress secondary to abdominal pain HEAD: normocephalic, atraumatic. EYES: PERRLA/EOMI, conjunctivae clear. NOSE: Normal no drainage EARS:TMS clear with good light reflex. THROAT: Pharynx clear, no exudate. NECK: Supple. No adenopathy, no masses. RESPIRATORY: Airway patent, respirations nonlabored. Clear to auscultation bilaterally, no rales, rhonchi, wheezing. CARDIOVASCULAR: Regular rate and rhythm without murmurs rubs or gallops. ABDOMINAL: Soft, nontender, nondistended, normal bowel sounds MUSCULOSKELETAL: Moves all extremities. Strength/ROM intact, No edema, No calf tenderness. NEURO: Alert. Cranial nerves II through XII intact. SKIN: Warm, dry. Normal Color Course Course Emergency Course: 32-year-old male presented emerged department for evaluation of left lower quadrant and left flank pain. Patient is afebrile with no leukocytosis and a stable hemoglobin. UA shows no evidence of urinary tract infection but does show hematuria. Patient has normal kidney function. CT scan did show a 5.4 mm ureteral calculi. Patient did receive multiple medications for pain control. Patient was offered admission for further pain control but patient preferred to be discharged and have follow-up with his urologist. Patient was educated on reasons to return to the emergency department. All questions concerns were addressed and patient was well-appearing at time of dischar
[2023-04-19 05:20] LABS: Bacteria Urine None Seen /hpf; Non Pathogenic Casts 0-2; RBC Urine 21-50 /hpf (0-2); Squamous Epithelial Cell Urine None seen /hpf (Few)
[2023-04-19 05:22] LABS: Add Urine Microscopic? YES
[2023-04-19 05:23] LABS: Alanine Aminotransferase 27 U/L (6-50); Alkaline Phosphatase 61 U/L (38-126); Anion Gap 4 mmol/L (8-16); Aspartate Amino Transferase 31 U/L (17-59); Bilirubin,Total 0.4 mg/dL (0.2-1.3); Blood Urea Nitrogen 15 mg/dL (9-20); Calcium 8.6 mg/dL (8.4-10.2); Carbon Dioxide 32 mmol/L (22-30); Chloride 102 mmol/L (98-107); Estimated CRCL calculation 114 ml/min; Estimated Glomerular Filt Rate > 60; Glucose 106 mg/dL (65-110); Potassium 4.1 mmol/L (3.4-5.0); Sodium 138 mmol/L (137-145)
[2023-04-19] MEDS: ONDANSETRON INJ 4 MG/2 ML VIAL IV PUSH (05:33)
[2023-04-19] MEDS: SODIUM CHLORIDE 0.9% IV 1,000 ML 999 ML IV CONT (05:34)
[2023-04-19] MEDS: HYDROmorphone HCL INJ (*CRX) 1 MG/ML SYR IV PUSH ×2 (05:34→06:42)
--- NOTE | 2023-04-19 06:04 | PC.NURSE ---
patient to CT.
[2023-04-19 06:34] VITALS: BP 130/72; PULSE 84; RESP 15; O2SAT 98
[2023-04-19] MEDS: HYDROmorphone HCL INJ (*CRX) 1 MG/ML SYR 0.5 MG IV PUSH (07:06)
[2023-04-19] MEDS: KETOROLAC 15 MG/ML VIAL (*BKC) IV PUSH (07:06)
[2023-04-19 07:10] VITALS: BP 148/98; PULSE 78; RESP 15; O2SAT 100
== END 2023-04-19 07:11 | disposition home or self-care (01) ==
PROVIDERS: Emergency Provider Emergency Medicine; PCP Internal Medicine
DX: N13.2 Hydronephrosis with renal and ureteral calculous obstruction (principal); I10 Essential (primary) hypertension; E78.2 Mixed hyperlipidemia; D64.9 Anemia, unspecified; G47.33 Obstructive sleep apnea (adult) (pediatric); F41.9 Anxiety disorder, unspecified; F32.A Depression, unspecified; Z86.16 Personal history of COVID-19; Z87.442 Personal history of urinary calculi; K44.1 Diaphragmatic hernia with gangrene; R93.3 Abnormal findings on diagnostic imaging of other parts of digestive tract
CPT/HCPCS: 36415; 74176; 80053; 81001; 85025; 87086; 96361; 96374; 96375; 96376; 99284; J1170; J1885; J2405; J7030

== ENCOUNTER 2024-10-05 07:52 | Outpatient (CLI) | payer OTHER, SELFPAY ==
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
--- OUTSIDE RECORDS SUMMARY | 2024-10-05 07:58 | XMS_ITS | Clinical Summary ---
Author Organization [facility] Virtual Care Address [address] [place] [phone] Phone Care Team Providers Care Slitter Helper Name Role Phone Nile Polk MD Primary [...] 06/06/2014 Tdap 11/02/2022 Tetanus Toxoid, Unspecified 08/08/2020 Surgical History Surgery Date Site/Laterality Comments LITHOTRIPSY SINUS SURGERY 07/13/2019 - 07/12/2020 INCISION AND DRAINAGE 07/13/2022 - 07/12/2023 Right multiple on right forearm ESOPHAGOGASTRODUODENOSCOPY 07/13/2013 - 07/12/2014 COLONOSCOPY 07/13/2020 - 07/12/2021 SLEEVE GASTROPLASTY 07/13/2013 - 07/12/2014 ARM DEBRIDEMENT 11/02/2022 Right I & D R FA Fx ORIF RADIUS & ULNA FRACTURES 11/02/2022 Right CARPAL TUNNEL RELEASE 11/02/2022 Right WRIST HARDWARE REMOVAL 11/14/2022 Right I & D RUE, removal ulnar pins ARM DEBRIDEMENT 11/17/2022 Right I & D right distal radius & ulna ARM DEBRIDEMENT 11/19/2022 Right I & D right distal radius & ulna; Revision Fixation Left ulna Medical History Medical History Date Comments Hypertension Chronic pain Family History Medical History Relation Name Comments Anesthesia problems Neg Hx Social History Tobacco Use Types Packs/Day Years [...] 11/24/2022 How often do you attend chur or moravian services? More than 4 times per year 11/24/2022 Do you belong to any clubs o r organizations such as faith groups, unions, fraternal or athletic groups, or [...] to sleep or slept in a senior living (including now)? No 11/24/2022 Personal Safety Answer Date Recorded Have you ever been in or are you currently in a harmful physical or emotional relationship or is someone making you feel afraid or unsafe? Denies 04/07/2023 Sex and Gender Information Value Date Recorded Sex Assigned at Not on file Legal Sex Male 9:11 AM [employer] Gender Identity Male 03/31/2023 8:46 PM CDT Sexual Orientation Straight 03/31/2023 8: 46 PM CDT Obstetrics History Last Filed Vital Signs Vital Sign Reading [...] 04/07/2023 2:23 PM CDT Plan of Treatment Health Maintenance Due Date Last Done Comments Depression Screening 1990 Hepatitis C Screening 1990 Varicella Vaccines (1 of 2 - 13+ 2-dose series) 2003 Hepatitis B Screening 2008 Regular Well Visit/Exam 18-64 2008 Covid-19 Vaccine (2023- season) 2024 12/13/2021, 04/12/2021, 10/06/2020, Additional history exists Influenza Vaccine (#1) 2024 , 06/06/2014, 03/25/2012 DTaP/Tdap/Td Vaccine (2 - Td or Tdap) 11/02/2032 11/02/2022 HPV Vaccines Aged Out No longer eligi ble based on patient's age to complete this topic Pneumococcal vaccine <65 Aged Out No longer eligible based on patient's age to complete this topic Medical Devices Explanted Type Area Animal Laboratory Helper Device Identifier Shelf Expiration Date Model / Serial / Lot Synthes Lcp Combi 68mm 7 Hole Head 4 Hole Shaft 2 Column Variable Angle 02.111.740 - Sna - [id number] Implanted:Qty: 1 on 11/02/2022 by Anthony Hinojosa MD at [facility] Explanted:Qty: 1 on 03/23/2023 at [facility] Plate Right: Radius Synthes I 02.111.740 / NA / NA Synthes 44mmx1.3mm Lock 2 Hole Head 6 Hole Shaft Variable Angle Condylar 02.130.355s - Sna - [id number] Implanted:Qty: 1 on 11/02/2022 by Anthony Hinojosa MD at [facility] Explanted:Qty: 1 on 03/23/2023 at [facility] Plate Right: Ulna Synthes I 02.130.355 S / NA / NA Synthes 2mm 8mm Self Tap Variable Angle Lock Stardrive T6 Screw Bone 02.130.308 - Sna - [id number] Explanted:Qty: 2 on 11/02/2022 by Anthony Hinojosa MD at [facility] Screw Right: Ulna Synthes I 02.130.308 / NA / NA Synthes 2mm 16mm Self Tap Self Retain Stardrive Cortex T6 Screw Bone 201.366.97 - Sna - [id number] Explanted:Qty: 1 on 11/02/2022 by Anthony Hinojosa MD at [facility] Screw Right: Ulna Synthes I 201.366.97 / NA / NA Synthes 2mm 24mm Self Tap Self Retain Stardrive Cortex T6 Screw Bone 201.374.97 - Sna - [id number] Explanted:Qty: 2 on 11/02/2022 by Anthony Hinojosa MD at [facility] Screw Right: Ulna Synthes I 201.374.97 / NA / NA Synthes 2mm 20mm Self Tap Self Retain Stardrive Cortex T6 Screw Bone 201.370.97 - Sna - [id number] Explanted:Qty: 1 on 11/02/2022 by Anthony Hinojosa MD at [facility] Screw Right: Ulna Synthes I 201.370.97 / NA / NA Synthes 2mm 14mm Self Tap Self Retain Stardrive Cortex T6 Screw Bone 201.364.97 - Sna - [id number] Implanted:Qty: 2 on 11/02/2022 by Anthony Hinojosa MD at [facility] Explanted:Qty: 2 on 11/19/2022 by Anthony Hinojosa MD at [facility] Screw Right: Ulna Synthes I 201.364.97 / NA / NA Synthes 2mm 16mm Self Tap Variable Angle Lock Stardrive T6 Screw Bone 02.130.316 - Sna - [id number] Implanted:Qty: 2 on 11/02/2022 by Anthony Hinojosa MD at [facility] Explanted:Qty: 1 on 11/19/2022 by Anthony Hinojosa MD at [facility] Explanted:Qty: 1 on 11/19/2022 at [facility] Screw Right: Ulna Synthes I 02.130.316 / NA / NA Synthes 2.4mm 18mm Self Tap Lock Variable Angle Stardrive T8 Screw Bone 02.210.118 - Sna - [id number] Implanted:Qty: 3 on 11/02/2022 by Anthony Hinojosa MD at [facility] Explanted:Qty: 3 on 03/23/2023 at [facility] Screw Right: Radius Synthes I 02.210.118 / NA / NA Synthes 2.4mm 16mm Self Tap Lock Variable Angle Stardrive T8 Screw Bone 02.210.116 - Sna - [id number] Implanted:Qty: 1 on 11/02/2022 by Anthony Hinojosa MD at [facility] Explanted:Qty: 1 on 03/23/2023 at [facility] Screw Right: Radius Synthes I 02.210.116 / NA / NA Synthes 2.4mm 20mm Self Tap Stardrive Cortex T8 Screw Bone 201.770 - Sna - [id number] Implanted:Qty: 1 on 11/02/2022 by Anthony Hinojosa MD at [facility] Explanted:Qty: 1 on 03/23/2023 at [facility] Screw Right: Radius Synthes I 201.770 / NA / NA Synthes 2.4mm 16mm Self Tap Stardrive Cortex T8 Screw Bone 201.766 - Sna - [id number] Implanted:Qty: 1 on 11/02/2022 by Anthony Hinojosa MD at [facility] Explanted:Qty: 1 on 03/23/2023 at [facility] Screw Right: Radius Synthes I 201.766 / NA / NA Synthes 2.4mm 14mm Self Tap Stardrive Cortex T8 Screw Bone 201.764 - Sna - [id number] Implanted:Qty: 3 on 11/02/2022 by Anthony Hinojosa MD at [facility] Explanted:Qty: 3 on 03/23/2023 at [facility] Screw Right: Radius Synthes I 201.764 / NA / NA Synthes 2.4mm 12mm Self Tap Lock Variable Angle Stardrive T8 Screw Bone 02.210.112 - Sna - [id number] Implanted:Qty: 1 on 11/02/2022 by Anthony Hinojosa MD at [facility] Explanted:Qty: 1 on 03/23/2023 at [facility] Screw Right: Radius Synthes I 02.210.112 / NA / NA Synthes 2.4mm 14mm Self Tap Lock Variable Angle Stardrive T8 Screw Bone 02.210.114 - Sna - [id number] Implanted:Qty: 1 on 11/02/2022 by Anthony Hinojosa MD at [facility] Explanted:Qty: 1 on 03/23/2023 at [facility] Screw Right: Radius Synthes I 02.210.114 / NA / NA [employer] Stefano .045in 9in [place] [employer] Wire 1600-945ns - Sna - [id number] Explanted:Qty: 3 on 11/02/2022 by Anthony Hinojosa MD at [facility] Wire Right: Radius [employer] 1600-945NS / NA / NA [employer] Stefano .062in 9in [place] [employer] Wire 1600-962ns - Sna - [id number] Explanted:Qty: 2 on 11/02/2022 by Anthony Hinojosa MD at [facility] Wire Right: Radius [employer] 1600-962NS / NA / NA [employer] Stefano .045in 4in [place] [employer] Wire 1600-445ns - Sna - [id number] Explanted:Qty: 3 on 11/02/2022 by Anthony Hinojosa MD at [facility] Wire Right: Radius [employer] 1600-445NS / NA / NA [employer] K Wire Fix [place] Bth End Ss 0.872l1ov 1600-445ns - Sna - [id number] Implanted:Qty: 1 on 11/02/2022 by Anthony Hinojosa MD at [facility] Explanted:Qty: 1 on 11/14/2022 at [facility] Wire Right: Radius [employer] DUP 1600-445NS / NA / NA [employer] Stefano .035in 9in [place] [employer] Wire 1600-935ns - Sna - [id number] Implanted:Qty: 1 on 11/02/2022 by Anthony Hinojosa MD at [facility] Explanted:Qty: 1 on 11/14/2022 at [facility] Wire Right: Ulna [employer] 1600-935NS / NA / NA [employer] Stefano .035in 9in 1 [place] Smooth Wire Fixation 1600-9355ns - [id number] Explanted:Qty: 1 on 11/19/2022 by Anthony Hinojosa MD at [facility] Right: Wrist [employer] 1600-8555N S / / [employer] K Wire Fix [place] Smooth Sgl End Ss 0.434j9qb 1600-9455ns - [id number] Explanted:Qty: 1 on 11/19/2022 by Anthony Hinojosa MD at [facility] Right: Wrist [employer] 1600-9455N S / / Synthes 2mm 16mm Self Tap Variable Angle Lock Stardrive T6 Screw Bone 02.130.316 - [id number] Implanted:Qty: 1 on 11/19/2022 by Anthony Hinojosa MD at [facility] Explanted:Qty: 1 on 03/23/2023 at [facility] Right: Ulna Synthes I 02.130.316 / / Description:2.0x16 [place] lockin g Synthes 2mm 18mm Self Tap Variable Angle Lock Stardrive T6 Screw Bone 02.130.318 - [id number] Implanted:Qty: 1 on 11/19/2022 by Anthony Hinojosa MD at [facility] [employer] Explanted:Qty: 1 on 03/23/2023 at [facility] Right: Ulna Synthes I 02.130.318 / / Synthes 2mm 14mm Self Tap Tip Variable Angle Lock Stardrive Hand T6 Screw 02.130.314 - [id number] Implanted:Qty: 2 on 11/19/2022 by Anthony Hinojosa MD at [facility] Explanted:Qty: 2 on 03/23/2023 at [facility] Right: Ulna Synthes I 02.130.314 / / Insurance [facility] CHOICE PLUS Advance Directives For more information, please contact: [phone] * Full Code (Latest Code Status on File) Date Activated Date Inactivated Comments 04/08/2023 3:46 AM 04/08/2023 11:39 PM * Full Code Date Activated Date Inactivated Comments 03/23/2023 8:44 PM 03/24/2023 5:18 PM * Full Code Date Activated Date Inactivated Comments 11/14/2022 8:39 PM 11/20/2022 4:57 PM * Full Code Date Activated Date Inactivated Comments 11/02/2022 4:56 PM 11/03/2022 3:02 PM Care Teams Slitter Helper Relationship Specialty Start Date End Date Nile Polk MD [address] [place] [address] PCP - General Internal Medicine 03/23/23
--- OUTSIDE RECORDS SUMMARY | 2024-10-05 07:59 | XMS_ITS | CONTINUITY OF CARE DOCUMENT ---
Author Name michael rodriguez Address Unknown Organization [facility] Address [address] [place] [address] Phone [phone] Care Team Providers Care Floor Cashier Name Role Phone Saleem HARRISON, Ronnie Unavailable [phone] Nicola WEIGHTS AND MEASURES INSPECTOR, Henry Unavailable Nicola WEIGHTS AND MEASURES INSPECTOR, Henry Unavailable [phone] PROBLEMS Condition Status Date Provider Notes Hypertension active Verah Bonareri SUPERVISOR [employer] Hyperlipidemia active Verrebeca Bonareri SUPER[employer] Chest pain active Verrebeca Bonareri SUPERVIS[employer] Family Hx heart disease active Elmer Padillare ri SUPERVISOR [employer] Anemia active Verrebeca Bonareri SUPER[employer] Esophageal ulcer, with bleeding active Vergaye h Valeriereri SUPERVISOR [employer] Hx of gastric bypass active Verrebeca Bonareri SUPER[employer] Sleep apnea active Verah Bonareri SUPERVISOR [employer] ENCOUNTERS Date Type Provider Location Encounter Diag nosis 7 - 7 In-person encounter Office Visit Ronnie Monge MD [facility] HypertensionHyperlipidemiaChest painFamily Hx heart diseaseAnemiaEsophageal ulcer, with bleedingHx of gastric bypassSleep apnea VITAL SIGNS Date Observation Value Provider blood pressure, diastolic 101 mm[Hg] Ilya Nuñez blood pressure, systolic 167 mm[Hg] Britney Nuñez oxygen saturation, oximetry 97 % Travis Nuñez pulse rate 90 /min Travis Nuñez weight E&M 230 [lb_av] Travis Nuñez ALLERGIES No Known Drug Allergies HISTORY OF MEDICATION USE Medication Status Instructions Dates Provider Indications Com ments bupropion HCl 300 mg tablet extended release 24 hr active 1 tablet by mouth once a day Elmer Smith NP buspirone 15 mg tablet active 1 tablet by mouth three times a day Elmer Smith NP ferrous sulfate 325 mg (65 mg iron) tablet active TAKE 1 TABLET BY MOUTH TWICE DAILY Elmer Smith NP irbesartan 150 mg tablet active Take 1 tablet by mouth once a day Elmer Smith NP duloxetine 60 mg capsule,delayed release(DR/EC) active TAKE 1 CAPSULE BY MOUTH EVERY DAY Elmer Smith NP SOCIAL HISTORY Date Observation Value Provider personal history of marijuana use yes Elmer Smith NP drug use no Elmer Smith NP alcohol use no Elmer Smith NP smoking status Never smoker Elmer [place] i, NP FAMILY HISTORY Family Member Condition Father [place] male <55 INSURANCE PROVIDERS Payer name Policy type / Coverage type [place] red libertarian ID SELF PAY [facility] [id number] Other [id number] TREATMENT PLAN Date Name Performer Cardiology: o n cpap prior to weight loss. He has been snoring again recently and feels fatigued and sleepy all the time W ill repeat sleep study. 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 w ill get an echo to assess function and structure Elmer Smith NP Cardiology: B P today: 167/101 P er patient generally has elevated BP at home D iscussed with patient need to monitor BP at home and keep record H is updated medication list for this problem includes: Irbesartan 150 Mg Tablet (Irbesartan) ..... Take 1 tablet by mouth once a day Elmer Smith NP Date Name Sleep Study Home Stress Routine Complete Echo
--- OUTSIDE RECORDS SUMMARY | 2024-10-05 07:59 | XMS_ITS | Continuity of Care Document ---
Author Organization [facility] Address [address] [address] [place] [address] Phone Care Team Providers Care Rate Clerk Name Role Phone Raymon Delgadlilo MD Unavailable Unavailable Advance Directives Directive Yes / No Effective Date File Name No Information Encounters Encounter Description Practice Location Reason(s) For Visit Diagnoses Date Provider Providers Copied on Encounter [facility] [place], [address] [facility] [place] [id number], [place] tel:[phone] [facility] [place] No Information Elie Ennis. [address] [place], [id number], [place]. tel:[phone] Family History Family Member Type Diagnosis Age At Onset No Information Payers Payer name Insurance type Covered libertarian ID Authoriza tion(s) No Information Social History Type Description Quantity Date Captured Comments Sex Male Smoking Status No Information Chief Complaint And Reason For Visit No Information Plan Of Treatment Date Type Action Status No Information History Of Present Illness Encounter Date Complaint History Of Prese nt Illness No Information Instructions Date Instruction Additional Infor mation No Information Assessments Type Assessment Date No Information
--- OUTSIDE RECORDS SUMMARY | 2024-10-05 07:59 | XMS_ITS | Data Portability ---
Author Organization [place] [facility], Main Office Address [address] [place] [address] Care Team Providers Care Pedicab Driver Name Role Phone LULU BUNCH Primary Care Provider LYUBOV CORRALES Psychiatrist HANH GUARDADO Chemistry Physics Teacher Assessment No assessment recorded. Plan of Treatment Reminders Order Date Submit Date Provider Last Modified By Organization Details Last Modified Time Details Appointments Follow Up 15 2024 04:30P M Lyubov Corrales, PMHNP Not available Not available Not available Any 15 2024 11:00A M Lurdes strange MD Not available Not available Not available Lab [facility] w/ auto diff [facility], [address], [place], [address], 09/29/2024 07:51:49 iron + TIBC + ferriti n, serum 2024 025 [facility], [address], [place], [address], 09/29/2024 07:51:49 cobalam in and folate panel, serum 2024 025 [employer] [facility], [address], [place], [address], 09/29/2024 07:51:49 CBC w/ auto diff 2023 024 [facility] (Lab), [address] [place], [address], 03/01/2024 14:21:38 lipid panel, serum 2023 [facility] (Lab), [address] [place], [address], 03/03/2024 08:05:45 glycohe moglobi n, total, blood 2023 [facility] (Lab), [address] [place], [address], 03/03/2024 08:05:45 TSH, serum or plasma 2023 [facility] (Lab), [address] [place], [address], 03/03/2024 08:05:44 CMP, serum or plasma 2023 [facility] (Lab), [address] [place], [address], 03/03/2024 08:05:45 hepatit is C virus Ab, serum 2023 [facility] (Lab), [address] [place], [address], 03/03/2024 08:05:45 hbcab (hepati tis B core Ab) igm, serum 2023 [facility] (Lab), [address] [place], [address], 03/03/2024 08:05:45 HBsAg (hepati tis B surface Ag), serum 2023 [facility] (Lab), [address] [place], [address], 03/03/2024 08:05:45 hepatit is A igm Ab, serum 2023 [facility] (Lab), [address] [place], [address], 03/03/2024 08:05:46 HIV (1+2) Ab screen, serum 2023 [facility] (Lab), [address] [place], [address], 03/03/2024 08:05:46 hsv (1+2) igg, serum 2023 [facility] (Lab), [address] [place], [address], 03/01/2024 08:19:50 RPR (rapid plasma reagin) , serum 2023 [facility] (Lab), [address] [place], [address], 03/03/2024 08:05:46 CT + NG DNA, PCR, unspeci fied specime n 2023 [facility] (Lab), [address] [place], [address], 03/03/2024 08:05:46 Referral gastroe nterolo gist referra l 2023 024 [facility] Claudia Coker MD, [address] [facility], [address], [place], [address], 03/24/2024 08:08:28 psychia trist referra l 2023 024 [email or web address] [facility], [address] [facility] [address], [place], [address], 08/18/2024 08:12:57 cardiol ogist referra l 2023 024 EZ Rouse MD, [address] [facility], [facility] [address], [place], [address], 03/08/2024 14:04:59 pain managem ent referra l 2023 024 [email or web address] [facility], [address], [facility] [address], [place], [address], 08/18/2024 08:14:29 Procedures None recorde d. Surgeries None recorde d. Imaging home sleep study - Please call patient to li goodrich 2024 025 [facility] ([facility]), [address] [place], [address], 09/08/2024 12:52:00 Medication Orders hydroco done 10 mg-acet aminoph en 325 mg tablet 2024 025 [facility][id number], [address], [place], [address], 09/08/2024 12:19:05 pantopr azole 40 mg tablet, delayed release 2024 025 [facility] #[id number], [address], [place], [address], 09/08/2024 12:19:04 ferrous sulfate 325 mg (65 mg iron) tablet 2024 025 [facility] #[id number], [address], [place], [address], 09/08/2024 12:24:11 pantopr azole 40 mg tablet, delayed release 2023 024 [facility], [address], [place], [address], 08/31/2024 14:49:26 ferrous sulfate 325 mg (65 mg iron) tablet 2023 024 [facility], [address] [place] [address], [address], 09/08/2024 12:03:05 bupropi on HCl XL 300 mg 24 hr tablet, extende d release 2023 024 [facility], [address] [place] [address], [address], 08/31/2024 14:48:10 buspiro ne 15 mg tablet 2023 024 [facility], [address] [place] [address], [address], 08/31/2024 14:48:12 duloxet ine 60 mg capsule ,delaye d release 2023 024 [facility], [address] [place] [address], [address], 08/31/2024 14:48:20 hydroco done 10 mg-acet aminoph en 325 mg tablet 2023 024 [facility] #[id number], [address] [place], [address], 09/08/2024 12:03:14 irbesar pires 150 mg tablet 2023 024 [facility], [address] [place] [address], [address], 09/08/2024 12:03:58 azithro mycin 250 mg tablet 2023 024 [facility][id number], [address] [facility], [place], [address], 08/31/2024 14:48:05 flucona zole 150 mg tablet 2023 024 [id number], [address], [place], [address], 08/31/2024 14:48:33 Patient TargetsNo targets recorded. Patient Instructions Encounter Date Encounter Id Patient Instructions Last Modified By Organization Details Last Modified Time 02/25/2024 [id number] Follow up in 3 months Prescriptions sent to pharmacy Obtain labs Tests: Referral: Yoko CorralesJqnxdhye-ULEWP-rgt ression/anxiety Dr. CokerJvbpiyc-VZ-dlmopam eal bleeding Pain management-chronic pain Cardiology-Dr. Rouse-Chest pain-rule out cardiac issues Recommend: Tetanus vaccine Shingles vaccine Not available 02/25/2024 13:00:42 08/31/2024 [id number] PT WITH HEP S AB . PT IS IMMUNE TO HEP B . NO FURTHER F/U NEEDED . 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 Referral for Ulcer of esophagus Referring Physician: Lulu Bunch Internal Medicine, Encounter Date: 02/25/2024 Pain Management Referral for Chronic pain Referring Physician: Lluu Bunch Internal Medicine, Encounter Date: 02/25/2024 Psychiatrist Referral for Mi xed anxiety and depressive disorder Referring Physician: Lulu Bunch Internal Medicine, Encounter Date: 02/25/2024 Results Created Date Observation Date Name Description Value Unit Range Abnormal Flag Note LastModifiedBy Organization Detail LastModifiedTime 03/06/20 22 03/07/2022 INSUL IN insulin 10.7 uIU/m L 2.6-24 .9 Perfo rmed at: - [facility] [address] [facility], [place] [address] Lab Direc tor: Herb mayfield PhD, Phone : [phone] Not Available [facility] ([facility]) [address] [place], [address], 03/07/2022 10:11:43 03/06/20 22 03/06/2022 HEMOG LOBIN A1C HA1C 5.4 % 4.0-6. 0 Diabe scooby Scree sandie Crite dex: <5.7% Consi stent with absen ce of diabe scooby 5.7-6 .4% Consi stent with incre ased risk for diabe scooby (pred iabet es) >OR=6 .5% Consi stent with diabe scooby REFER ENCE: Diabe scooby Care 2016, 39(Sosa ppl.1 ):s13 -s22 Not Available [facility] (Lab) [address] [place], [address], 03/06/2022 14:50:22 03/06/20 22 03/06/2022 FOLAT E, SERUM /PLAS MA folate 5.40 NG/mL 2.76-2 0.0 Not Available [facility] (Lab) [address] [place], [address], 03/06/2022 12:52:36 03/06/20 22 03/06/2022 VITAM IN B12 (MIRA VLAD ) vb12 332 pg/mL 239-93 1 Not Available [facility] (Lab) [address] [place], [address], 03/06/2022 12:52:31 03/06/20 22 03/06/2022 URINA LYSIS COMPL ETE/I RIS W/RFX nitrite negati ve negati ve- Not Available [facility] (Lab) [address] [place], [address], 03/06/2022 12:38:38 03/06/20 22 03/06/2022 URINA LYSIS COMPL ETE/I RIS W/RFX color yellow Not Available [facility] (Lab) [address] [place], [address], 03/06/2022 12:38:38 03/06/20 22 03/06/2022 URINA LYSIS COMPL ETE/I RIS W/RFX appear clear Not Available [facility] (Lab) [address] [place], [address], 03/06/2022 12:38:38 03/06/20 22 03/06/2022 URINA LYSIS COMPL ETE/I RIS W/RFX specific gravity 1.027 1.001- 1.030 Not Available [facility] (Lab) [address] [place], [address], 03/06/2022 12:38:38 03/06/20 22 03/06/2022 URINA LYSIS COMPL ETE/I RIS W/RFX pH 6.0 pH_un its 5.0-9. 0 Not Available [facility] (Lab) [address] [place], [address], 03/06/2022 12:38:38 03/06/20 22 03/06/2022 URINA LYSIS COMPL ETE/I RIS W/RFX leukocytes negati ve lisa/u L negati ve- Not Available [facility] (Lab) [address] [place], [address], 03/06/2022 12:38:38 03/06/20 22 03/06/2022 URINA LYSIS COMPL ETE/I RIS W/RFX protein negati ve mg/dL negati ve- Not Available [facility] (Lab) [address] [place], [address], 03/06/2022 12:38:38 03/06/20 22 03/06/2022 URINA LYSIS COMPL ETE/I RIS W/RFX glucose normal mg/dL normal - Not Available [facility] (Lab) [address] [place], [address], 03/06/2022 12:38:38 03/06/20 22 03/06/2022 URINA LYSIS COMPL ETE/I RIS W/RFX ketones negati ve mg/dL negati ve- Not Available [facility] (Lab) [address] [place], [address], 03/06/2022 12:38:38 03/06/20 22 03/06/2022 URINA LYSIS COMPL ETE/I RIS W/RFX urobilinogen normal mg/dL normal - Not Available [facility] (Lab) [address] [place], [address], 03/06/2022 12:38:38 03/06/20 22 03/06/2022 URINA LYSIS COMPL ETE/I RIS W/RFX bilirubin negati ve mg/dL negati ve- Not Available [facility] (Lab) [address] [place], [address], 03/06/2022 12:38:38 03/06/20 22 03/06/2022 URINA LYSIS COMPL ETE/I RIS W/RFX blood negati ve mg/dL negati ve- Not Available [facility] (Lab) [address] [place], [address], 03/06/2022 12:38:38 03/06/20 22 03/06/2022 URINA LYSIS COMPL ETE/I RIS W/RFX white blood cells 0-8 /i??h pfi?? 0-8 Not Available [facility] (Lab) [address] [place], [address], 03/06/2022 12:38:38 03/06/20 22 03/06/2022 URINA LYSIS COMPL ETE/I RIS W/RFX red blood cells 0-4 /i??h pfi?? 0-4 Not Available [facility] (Lab) [address] [place], [address], 03/06/2022 12:38:38 03/06/20 22 03/06/2022 URINA LYSIS COMPL ETE/I RIS W/RFX bacteria none Not Available [facility] (Lab) [address] [place], [address], 03/06/2022 12:38:38 03/06/20 22 03/06/2022 URINA LYSIS COMPL ETE/I RIS W/RFX mucous occasi onal /i??l pfi?? abnormal Not Available [facility] (Lab) [address] [place], [address], 03/06/2022 12:38:38 03/06/20 22 03/06/2022 URINA LYSIS COMPL ETE/I RIS W/RFX squamous epithelial none /i??l pfi?? abnormal Not Available [facility] (Lab) [address] [place], [address], 03/06/2022 12:38:38 03/06/20 22 03/06/2022 THOMAS TIN ferritin 6 NG/mL 17.9-4 64 low Not Available [facility] (Lab) [address] [place], [address], 03/06/2022 12:19:16 03/06/20 22 03/06/2022 CORTI RADHA, TOTAL yasmani 2.6 ug/dL CORTI RADHA RESUL T COMME NT: Refer ence Range : Befor e 10 a.m. Speci men: 4.5-2 2.7 Refer ence Range : After 5 p.m. Speci men: 1.7-[address] ease inter pret above resul ts accor dingl y Not Available [facility] (Lab) [address] [place], [address], 03/06/2022 12:18:55 03/06/20 22 03/06/2022 TSH W/REF DAVID FT4 TSH with reflex free T4 2.150 uIU/m L 0.465- 4.680 Not Available [facility] (Lab) [address] [place], [address], 03/06/2022 12:18:43 03/06/20 22 03/06/2022 VITAM IN D 25-HY DROXY [id number] 33.7 NG/mL 30-100 Vitam in D Statu s: Defic ient: <20 ng/mL Insuf ficie nt: 20-29 ng/mL Suffi cient : 30-10 0 ng/mL Not Available [facility] (Lab) [address] [place], [address], 03/06/2022 12:01:48 03/06/20 22 03/06/2022 IRON/ TIBC PANEL total iron binding capacity 427 mcg/d L 265-47 5 Not Available [facility] (Lab) [address] [place], [address], 03/06/2022 11:55:07 03/06/20 22 03/06/2022 IRON/ TIBC PANEL % transferrin saturation 4 % 20-55 low Not Available [facility] (Lab) [address] [place], [address], 03/06/2022 11:55:07 03/06/20 22 03/06/2022 IRON/ TIBC PANEL unsaturated iron bind capacity 412 mcg/d L 126-38 2 high Not Available [facility] (Lab) [address] [place], [address], 03/06/2022 11:55:07 03/06/20 22 03/06/2022 IRON/ TIBC PANEL iron 15 mcg/d L 42-175 low Not Available [facility] (Lab) [address] [place], [address], 03/06/2022 11:55:07 03/06/20 22 03/06/2022 LIPID PANEL cholesterol 156 mg/dL 140-19 9 NIH ARNALDO NSUS RECOM MENDA TION FOR DEREK STERO L: ADULT CHILD LOW RISK: <200 <170 BORDE RLINE : <200- 239 ----- HIGH RISK: >240 >200 Not Available [facility] (Lab) [address] [place], [address], 03/06/2022 11:51:31 03/06/20 22 03/06/2022 LIPID PANEL triglyceride s 111 mg/dL 0-150 NIH ARNALDO NSUS REPOR T RECOM MENDA TION FOR TRIGL YCERI ANGELO: ADULT CHILD LOW RISK: <150 ----- BODER LINE: 150-1 99 ----- HIGH RISK: >200 ----- Not Available [facility] (Lab) [address] [place], [address], 03/06/2022 11:51:31 03/06/20 22 03/06/2022 LIPID PANEL HDL cholesterol 44 mg/dL 40- Not Available [facility] (Lab) [address] [place], [address], 03/06/2022 11:51:31 03/06/20 22 03/06/2022 LIPID PANEL LDL cholesterol, calculated 90 mg/dL 0-130 NIH ARNALDO NSUS REPOR T RECOM MENDA TIONS FOR LDL: ADULT CHILD LOW RISK <130 <110 (OPTI MAL LDL) <100 ----- BORDE RLINE : 130-1 59 ----- HIGH RISK: >160 >130 A TRIGL YCERI DE RESUL T >400 INVAL IDATE S THE CALCU LATIO N FOR LDL FRACT IONAT ION - THE LDL RESUL T WILL NOT BE REPOR LUCIANA. Not Available [facility] (Lab) [address] [place], [address], 03/06/2022 11:51:31 03/06/20 22 03/06/2022 COMPR EHENS YARELY METAB OLIC PANEL carbon dioxide 25 mmol/ L 22-30 Not Available [facility] (Lab) [address] [place], [address], 03/06/2022 11:51:26 03/06/20 22 03/06/2022 COMPR EHENS YARELY METAB OLIC PANEL sodium 140 mmol/ L 137-14 5 Not Available [facility] (Lab) [address] [place], [address], 03/06/2022 11:51:26 03/06/20 22 03/06/2022 COMPR EHENS YARELY METAB OLIC PANEL potassium 4.0 mmol/ L 3.5-5. 1 Not Available [facility] (Lab) [address] [place], [address], 03/06/2022 11:51:26 03/06/20 22 03/06/2022 COMPR EHENS YARELY METAB OLIC PANEL chloride 106 mmol/ L 98-107 Not Available [facility] (Lab) [address] [place], [address], 03/06/2022 11:51:26 03/06/20 22 03/06/2022 COMPR EHENS YARELY METAB OLIC PANEL anion gap 13.0 mmol/ L 14-22 low Not Available [facility] (Lab) [address] [place], [address], 03/06/2022 11:51:26 03/06/20 22 03/06/2022 COMPR EHENS YARELY METAB OLIC PANEL glucose 83 mg/dL 70-99 Not Available [facility] (Lab) [address] [place], [address], 03/06/2022 11:51:26 03/06/20 22 03/06/2022 COMPR EHENS YARELY METAB OLIC PANEL BUN 14 mg/dL 8-19 Not Available [facility] (Lab) [address] [place], [address], 03/06/2022 11:51:26 03/06/20 22 03/06/2022 COMPR EHENS YARELY METAB OLIC PANEL creatinine 0.82 mg/dL 0.66-1 .25 Not Available [facility] (Lab) [address] [place], [address], 03/06/2022 11:51:26 03/06/20 22 03/06/2022 COMPR EHENS YARELY METAB OLIC PANEL GFR >60 Refer ence Range : [place] ge GFR Healt hy Adult : >60 mL/mi n/1.7 3 m2 Chron ic Kidne y Disea se: 15-60 mL/mi n/1.7 3 m2 Kidne y Failu re: <15/m L/min /1.73 m2 www.n iddk. nih.g ov The MDRD study equat ion has not been valid ated in child laurent <18 years of age; pregn ant women ; the elder ly >85 years of age; or in some racia l or ethni c subgr oups, such as Hispa nics. Outsi de the valid ated melinda eters , estim ated GFR is less accur ate, requi ring clini quin judgm ent on a case- by-ca se basis . Clini quin inter preta tion for other races and ages must be made by the clini ana maria. The MDRD study equat ion has not been valid ated for the evalu ation of serum creat inine relat ed to nutri evy l statu s or medic ation usage . For perso ns <18 years of age, a pedia tric GFR calcu lator is avail able on the [facility] websi te: https ://gt phillips.rut gates.o rg/pr ofess ional s/kdo qi/gf r_cal culat or Not Available [facility] (Lab) [address] [place], [address], 03/06/2022 11:51:26 03/06/20 22 03/06/2022 COMPR EHENS YARELY METAB OLIC PANEL alkaline phosphatase 56 U/L 38-126 Not Available [facility] (Lab) [address] [place], [address], 03/06/2022 11:51:26 03/06/20 22 03/06/2022 COMPR EHENS YARELY METAB OLIC PANEL alanine aminotransfe rase 26 U/L 0-50 Not Available [facility] (Lab) [address] [place], [address], 03/06/2022 11:51:26 03/06/20 22 03/06/2022 COMPR EHENS YARELY METAB OLIC PANEL aspartate aminotransfe rase 36 U/L 15-46 Not Available [facility] (Lab) [address] [place], [address], 03/06/2022 11:51:26 03/06/20 22 03/06/2022 COMPR EHENS YARELY METAB OLIC PANEL bilirubin, total 0.30 mg/dL 0.20-1 .30 Not Available [facility] (Lab) [address] [place], [address], 03/06/2022 11:51:26 03/06/20 22 03/06/2022 COMPR EHENS YARELY METAB OLIC PANEL calcium 9.1 mg/dL 8.4-10 .2 Not Available [facility] (Lab) [address] [place], [address], 03/06/2022 11:51:26 03/06/20 22 03/06/2022 COMPR EHENS YARELY METAB OLIC PANEL total protein 6.5 g/dL 6.3-8. 2 Not Available [facility] (Lab) [address] [place], [address], 03/06/2022 11:51:26 03/06/20 22 03/06/2022 COMPR EHENS YARELY METAB OLIC PANEL albumin 4.2 g/dL 3.4-5. 0 Not Available [facility] (Lab) [address] [place], [address], 03/06/2022 11:51:26 03/06/20 22 03/06/2022 COMPR EHENS YARELY METAB OLIC PANEL globulin 2.3 g/dL 2.6-4. 2 low Not Available [facility] (Lab) [address] [place], [address], 03/06/2022 11:51:26 03/06/20 22 03/06/2022 COMPR EHENS YARELY METAB OLIC PANEL A/G ratio 1.8 ratio 1.0-2. 0 Not Available [facility] (Lab) [address] [facility] [place], [address], 03/06/2022 11:51:26 03/06/20 22 03/06/2022 CBC/C OMPLE TE BLD COUNT W/DIF F hematocrit 33.7 % 39.3-5 0.0 low Not Available [facility] (Lab) [address] [facility] [place], [address], 03/06/2022 11:36:58 03/06/20 22 03/06/2022 CBC/C OMPLE TE BLD COUNT W/DIF F white blood cells 4.8 x10'3 /uL 4.2-10 .8 Not Available [facility] (Lab) [address] [place], [address], 03/06/2022 11:36:58 03/06/20 22 03/06/2022 CBC/C OMPLE TE BLD COUNT W/DIF F red blood cells 4.02 x10'6 /uL 4.10-5 .80 low Not Available [facility] (Lab) [address] [place], [address], 03/06/2022 11:36:58 03/06/20 22 03/06/2022 CBC/C OMPLE TE BLD COUNT W/DIF F hemoglobin 10.2 g/dL 13.2-1 7.0 low Not Available [facility] (Lab) [address] [place], [address], 03/06/2022 11:36:58 03/06/20 22 03/06/2022 CBC/C OMPLE TE BLD COUNT W/DIF F mean red cell volume 83.8 fL 80.0-9 7.0 Not Available [facility] (Lab) [address] [place], [address], 03/06/2022 11:36:58 03/06/20 22 03/06/2022 CBC/C OMPLE TE BLD COUNT W/DIF F mean red cell hemoglobin 25.4 pg 27.0-3 3.0 low Not Available [facility] (Lab) [address] [place], [address], 03/06/2022 11:36:58 03/06/20 22 03/06/2022 CBC/C OMPLE TE BLD COUNT W/DIF F mean RBC HGB concentratio n 30.3 g/dL 31.0-3 6.0 low Not Available [facility] (Lab) [address] [place], [address], 03/06/2022 11:36:58 03/06/20 22 03/06/2022 CBC/C OMPLE TE BLD COUNT W/DIF F red cell distribution width 15.3 % 11.8-1 5.5 Not Available [facility] (Lab) [address] [place], [address], 03/06/2022 11:36:58 03/06/20 22 03/06/2022 CBC/C OMPLE TE BLD COUNT W/DIF F platelets 345 x10'3 /uL 150-40 0 Not Available [facility] (Lab) [address] [place], [address], 03/06/2022 11:36:58 03/06/20 22 03/06/2022 CBC/C OMPLE TE BLD COUNT W/DIF F mean platelet volume 9.5 fL 9.0-12 .4 Not Available [facility] (Lab) [address] [place], [address], 03/06/2022 11:36:58 03/06/20 22 03/06/2022 CBC/C OMPLE TE BLD COUNT W/DIF F neutrophils 41.9 % 39.0-7 2.0 Not Available [facility] (Lab) [address] [place], [address], 03/06/2022 11:36:58 03/06/20 22 03/06/2022 CBC/C OMPLE TE BLD COUNT W/DIF F lymphocytes 41.1 % 16.0-4 7.0 Not Available [facility] (Lab) [address] [place], [address], 03/06/2022 11:36:58 03/06/20 22 03/06/2022 CBC/C OMPLE TE BLD COUNT W/DIF F monocytes 8.4 % 5.0-12 .0 Not Available [facility] (Lab) [address] [place], [address], 03/06/2022 11:36:58 03/06/20 22 03/06/2022 CBC/C OMPLE TE BLD COUNT W/DIF F eosinophils 8.0 % 1.0-7. 0 high Not Available [facility] (Lab) [address] [place], [address], 03/06/2022 11:36:58 03/06/20 22 03/06/2022 CBC/C OMPLE TE BLD COUNT W/DIF F basophils 0.6 % 0.0-2. 0 Not Available [facility] (Lab) [address] [place], [address], 03/06/2022 11:36:58 03/06/20 22 03/06/2022 CBC/C OMPLE TE BLD COUNT W/DIF F immature granulocytes 0.0 % 0.00-0 .50 Not Available [facility] (Lab) [address] [place], [address], 03/06/2022 11:36:58 03/06/20 22 03/06/2022 CBC/C OMPLE TE BLD COUNT W/DIF F neutrophils, absolute count 1.99 x10'3 /uL 1.5-8. 0 Not Available [facility] (Lab) [address] [place], [address], 03/06/2022 11:36:58 03/06/20 22 03/06/2022 CBC/C OMPLE TE BLD COUNT W/DIF F lymphocytes, absolute count 1.95 x10'3 /uL 1.07-3 .43 Not Available [facility] (Lab) [address] [place], [address], 03/06/2022 11:36:58 03/06/20 22 03/06/2022 CBC/C OMPLE TE BLD COUNT W/DIF F monocytes, absolute count 0.40 x10'3 /uL 0.29-0 .99 Not Available [facility] (Lab) [address] [place], [address], 03/06/2022 11:36:58 03/06/20 22 03/06/2022 CBC/C OMPLE TE BLD COUNT W/DIF F eosinophils, absolute count 0.38 x10'3 /uL 0.02-0 .53 Not Available [facility] (Lab) [address] [place], [address], 03/06/2022 11:36:58 03/06/20 22 03/06/2022 CBC/C OMPLE TE BLD COUNT W/DIF F basophils, absolute count 0.03 x10'3 /uL 0.01-0 .08 Not Available [facility] (Lab) [address] [place], [address], 03/06/2022 11:36:58 03/06/20 22 03/06/2022 CBC/C OMPLE TE BLD COUNT W/DIF F immature granulocytes ,absolute 0.00 x10'3 /uL 0.00-0 .05 Not Available [facility] (Lab) [address] [place], [address], 03/06/2022 11:36:58 03/06/20 22 03/06/2022 CBC/C OMPLE TE BLD COUNT W/DIF F nucleated red blood cells 0.0 % -0 Not Available [facility] (Lab) [address] [place], [address], 03/06/2022 11:36:58 03/06/20 22 03/06/2022 CBC/C OMPLE TE BLD COUNT W/DIF F NRBC# 0.00 x10'3 /uL Not Available [facility] ([facility]) [address] [place], [address], 03/06/2022 11:36:58 01/29/20 22 01/28/2022 CT, maxil lofac ial, w/o contr ast [facility] [address] [place] [address] Patien t Name: ARNOL NORTON Access ion #: [id number] Sex: M : 1989 1 Locati on: RAD Attend ing Physic edy: MACARENA ARNOLD Orderi ng Physic edy: MACARENA ARNOLD Exam Date: 022 12:19 PM Exam Name: CT MAXILL OFACIA L WO Admitt ing Diagno sis(es ): RADIOL OGY REPORT - FINAL EXAM: CT MAXILL OFACIA L WO HISTOR Y: chroni c sinusi tis 31-yea r-old male with headac hes, mild nasal conges tion, histor y of sinus surger y greate r than 1 year ago. COMPAR LEROY: CT scan dated 2020. TECHNI QUE: Noncon trast axial CT images of the parana margaret sinuse s were perfor med. Steward l and sagitt al reform atted images were obtain ed. This CT exam was perfor med using one or more of the follow ing dose reduct ion techni ques: Automa luciana exposu re contro l, adjust ment of the mA and/or kV accord ing to patien t size, or use of iterat yarely recons tructi on techni que. FINDIN GS: Page 1 of 2 [facility] Brendon t Name: ARNOL NORTON Access ion #: [id number] Sex: M : 1989 1 Exam Date: 12:19 PM Exam Name: CT MAXILL OFACIA L WO Admitt ing Diagno sis(es ): There is mild mucosa l thicke sandie of the bilate ral spheno id and maxill wade sinuse s. The fronta l and ethmoi d sinuse s are clear. There is a mucous retent ion cyst in the left maxill wade sinus. No facial bone fractu res are identi fied. The nasal septum is essent ially midlin e. The OMCs are patent . No kendal bullos a. The left middle turbin ate is either hypopl astic or partia lly surgic ally absent , stable . There are bilate ral Bessy cells. The mastoi d air cells and middle ear spaces are clear. There may be old minima lly displa anjana nasal bone fractu res. There is mild adenoi d tonsil lar hypert rophy. IMPRES WILLIAN: 1. Mild bilate ral spheno id and maxill wade sinus diseas e, improv ed overal l versus CT scan dated 2020. 2. 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 Create d and electr onical ly signed by: Anthony perera MD Signed Date: 1:12 PM (CT) Dictat ed by: Anthony perera MD DD: 1:12 PM (CT) DT: 1:12 PM (CT) Page 2 of 2 [id number] [facility] [address] [place], [address], 09/10/2022 02:53:06 02/01/20 22 01/28/2022 CT, sinus es, w/o contr ast No observ ation record ed. [id number] [facility] [address] [place], [address], 09/10/2022 02:53:06 04/14/20 22 04/13/2022 CT, abdom en + pelvi s, w/o contr ast No observ ation record ed. MIGRATION. [id number] [place] [address], [place], [address], 09/10/2022 02:53:06 Result Notes None recorded. Problems Name Problem SNOMED Code Status Onset Date Resolution Date Notes Provider Name and Address Organization Details Recorded Time Cobalamin deficiency 593747163 Active 2021 Lulu Bunch APRN [address], [place], [address] , [employer] 4 16:08:07 Richard hematuria 724438993 Active Not Available [employer] 3 22:29:50 Ureteric stone 26346142 Active 2021 Not Available [employer] 3 22:29:50 Chronic sinusitis 06045718 Active 2021 Lulu Bunch APRN [address], [address], [place], [address] , [employer] 4 16:08:01 Obesity 830352817 Active Lulu Bunch APRN [address], [place], [address] , [employer] 4 16:08:13 Urolithias is 92413935 Active Not Available [employer] 3 22:29:50 Kidney stone 87215056 Active 2021 Not Available [employer] 3 22:29:50 Calculus in urethra 04158630 Active Lulu Bunch APRN [address], [address], [place], [address] , [employer] 4 16:06:08 History of chest pain 9096922512430 9109 Active 2023 Lulu Bunch APRN [address], [place], [address] , [employer] [facility] [employer] [facility] [employer] 4 12:32:10 Ulcer of esophagus 15730791 Active 2023 Lulu Bunch APRN [address], [place], [address] , [employer] [facility] [employer] [facility] [employer] 4 12:32:48 Chronic pain 20743986 Active 2023 Lulu Bunch APRN [address], [place], [address] , [employer] [facility] [employer] 4 12:38:02 Mixed anxiety and depressive disorder 627878561 Active 2023 Lulu Bunch APRN [address], [place], [address] , [employer] 4 12:39:29 Major depressive disorder 864466745 Active 2023 Lulu Bunch APRN [address], [address], [place], [address] , [employer] 4 12:39:40 Borderline personalit y disorder 46718747 Active 2023 Lulu Bunch APRN [address], [address], [place], [address] , [employer] [facility] [employer] 4 12:40:02 Essential hypertensi on 88558462 Active 2023 Lulu Bunch APRN [address], [address], [place], [address] , [employer] [facility] [employer] 4 12:50:29 Anemia 012621390 Active 2023 Lulu Bunch APRN [address], [place], [address] , [employer] [facility] [employer] 4 12:51:03 Hyperlipid emia 83705200 Active 2023 Lulu Bunch APRN [address], [place], [address] , [employer] [facility] [employer] 4 12:37:56 Penile candidiasi s 752453393 Active 2023 Lulu Bunch APRN [address], [place], [address] , [employer] [facility] [employer] 4 13:01:03 Otitis media 70630186 Active 2023 Lulu Bunch APRN [address], [place], [address] , [employer] [facility] [employer] 4 13:08:53 Otitis media 24644923 Active 2023 Lulu Bunch APRN [address], [address], [place], [address] , [employer] [facility] [employer] 4 13:11:48 Herpes simplex type 2 infection 769691309 Active 2023 Lulu Bunch APRN [address], [place], [address] , [employer] [facility] [employer] 4 08:55:21 Type B viral hepatitis 55380240 Active 2023 Lulu Bunch APRN [address], [place], [address] , [employer] [employer] 4 10:39:52 Acute sinusitis 89516464 Active 2023 Lulu Bunch APRN [address], [place], [address] , [employer] [facility] [employer] 4 08:48:30 Acute urinary tract infection 292308217 Active 2023 Lulu Bunch APRN [address], [place], [address] , [employer] [facility] [employer] 4 15:19:54 Hepatitis B antibody present 559817314 Active 2024 Claudia Coker MD [address], [facility] [address], [place], [address] , [facility] 16:10:22 Sleep apnea 33205567 Active 2024 Lulu Bunch APRN [address], [place], [address] , [facility] 12:07:59 Problem Notes None recorded. Procedures Surgical History Date Name Laterality Status Provider Name and Address Organization Details Recorded Time 06/20/20 14 Cystoscopy and treatment completed Not Available [facility] 09/10/2022 02:41:29 Tonsillectomy completed Not Available [facility] 09/10/2022 02:41:29 extracorporeal shockwave lithotripsy completed Not Available [facility] 09/10/2022 02:41:29 laparoscopic sleeve gastrectomy completed Not Available [facility] 09/10/2022 02:41:29 Imaging Results Imaging Date Name Status LastModified by Organiz ation Details LastModified Time 01/28/2022 CT, sinuses, w/o contrast completed [id number] [facility] [address] [place], [address], 09/10/2022 02:53:06 04/13/2022 CT, abdomen + pelvis, w/o contrast completed [id number] [address] [place] [address], [address], 09/10/2022 02:53:06 01/28/2022 CT, maxillofacial , w/o contrast completed [id number] 026 [facility] [address] [place], [address], 09/10/2022 02:53:06 Procedure Notes None recorded. Medical Equipment None Reported. Allergies Allergen ID Allergen Name Allergen Category Reaction Reaction Severity Criticality Documentation Date Start Date Code Code System Note Provider Name and Address Organization Details Recorded Time 63460 No known allergy (situatio n) Not available Not available Not available Not available 02/23/2024 [id number] SNOMED Lulu Bunch APRN [address] [facility], [place], [address] , [facility] [employer] [facility] 4 16:06:14 No known drug allergies Medications Name Sig Start Date Stop Date Status Note LastModified by Organization Details LastModified Time sv iron 65mg tab TAKE 1 TABLET BY MOUTH ONCE DAILY. 02/24 completed Not Available Not Available Not Available losartan 50 mg tablet TAKE 1 TABLET BY MOUTH EVERY DAY 08/05 completed Not Available Not Available Not Available fluoxetine 40 mg capsule TAKE 1 CAPSULE BY MOUTH EVERY DAY active Not Available Not Available No t Available clotrimazol e 10 mg ana DISSOLVE 1 LOZENGE BY MOUTH FIVE TIMES DAILY 03/04 completed Not Available Not Available Not Available doxycycline hyclate 100 mg capsule TAKE 1 CAPSULE BY MOUTH EVERY 12 HOURS X21 DAYS 02/24 completed Not Available Not Available Not Available trazodone 50 mg tablet TAKE 1 TABLET BY MOUTH EVERYDAY AT BEDTIME 08/31 completed Not Available Not Available Not Available azithromyci n 250 mg tablet TAKE 2 TABLETS BY MOUTH TODAY, THEN TAKE 1 TABLET DAILY FOR 4 DAYS DIRECTED 08/31 completed Not Available Not Available Not Available tizanidine 4 mg tablet Take 1 tablet every 6 hours by oral route as needed. active Not Available Not Available No t Available fluconazole 150 mg tablet TAKE 1 TABLET BY MOUTH EVERY DAY DIRECTED 08/31 completed Not Available Not Available Not Available acetaminoph en 120 mg-codeine 12 mg/5 mL oral solution active Not Available Not Available Not Available hydrocodone 5 mg-acetamin ophen 325 mg tablet take 1 pill every 6- 8 hours as needed for pain. active Not Available Not Available No t Available sucralfate 1 gram tablet TAKE 1 TABLET BY MOUTH 4 TIMES DAILY BEFORE MAILS AND AT BEDTIME. DISSOLVE TABLET IN 30ML OF WATER, STIR AND TAKE SLURRY ON EMPTY STOMACH 02/24 completed Not Available Not Available Not Available ondansetron HCl 4 mg tablet TAKE 1 TABLET BY MOUTH EVERY 6 HOURS NEEDED FOR NAUSEA/EM ESIS. 08/31 completed Not Available Not Available Not Available prednisone 20 mg tablet active Not Available Not Available Not Available clonazepam 0.5 mg tablet TAKE 1 TABLET BY MOUTH 3 TIMES A DAY NEEDED 08/31 completed Not Available Not Available Not Available sertraline 100 mg tablet TAKE 1 TABLET BY MOUTH EVERY DAY 08/05 completed Not Available Not Available Not Available Ferrex 150 mg iron capsule Take 150 mg by oral route. 02/24 completed Not Available Not Available Not Available clonazepam 1 mg tablet TAKE 1 TABLET 3 TIMES A DAY BY ORAL ROUTE NEEDED. 08/31 completed Not Available Not Available Not Available Pyridium 200 mg tablet Take 1 tablet 3 times a day by oral route as needed for 2 days. 02/04 completed Not Available Not Available Not Available acetaminoph en 300 mg-codeine 30 mg tablet Take 1 tablet every 6 hours by oral route as needed. active Not Available Not Available No t Available sulfamethox azole 800 mg-trimetho prim 160 mg tablet TAKE 1 TABLET BY MOUTH TWICE DAILY 02/24 completed Not Available Not Available Not Available hydrocodone 10 mg-acetamin ophen 325 mg tablet PLEASE SEE ATTACHED FOR DETAILED DIRECTION S active Not Available Not Available No t Available peg-electro lyte solution 420 gram oral solution 02/04 completed Not Available Not Available Not Available tramadol 50 mg tablet TAKE 2 TABLETS BY MOUTH EVERY SIX TO EIGHT HOURS NEEDED 02/22 completed Not Available Not Available Not Available ketorolac 30 mg/mL (1 mL) injection solution 30 mg by injection route. 04/19 completed Not Available Not Available Not Available ketorolac 10 mg tablet TAKE 1 TABLET BY MOUTH EVERY 4-6 HOURS FOR 5 DAYS NEEDED FOR PAIN. DO NOT EXCEED 4 DOSES PER DAY 02/24 completed Not Available Not Available Not Available meloxicam 7.5 mg tablet TK 1 T PO BID WF PRN active Not Available Not Available No t Available oxycodone-a cetaminophe n 5 mg-325 mg tablet TAKE 1 TO 2 TABS BY MOUTH EVERY 4 HOURS NEEDED FOR PAIN 03/04 completed Not Available Not Available Not Available methocarbam ol 750 mg tablet TAKE 1 TABLET EVERY 8 TO 12 HOURS NEEDED 02/24 completed Not Available Not Available Not Available tamsulosin 0.4 mg capsule TAKE 1 CAPSULE BY MOUTH EVERY DAY 02/24 completed Not Available Not Available Not Available trazodone 100 mg tablet TAKE 1 TABLET BY MOUTH TWICE A DAY active Not Available Not Available No t Available hydrocodone 7.5 mg-acetamin ophen 325 mg tablet TAKE 1 TABLET BY MOUTH EVERY 6 HOURS NEEDED FOR PAIN 02/22 completed Not Available Not Available Not Available cephalexin 500 mg capsule TAKE 1 CAPSULE BY MOUTH EVERY 6 HOURS FOR 10 DAYS 02/24 completed Not Available Not Available Not Available pantoprazol e 40 mg tablet,sri yed release TAKE 1 TABLET BY MOUTH TWICE DAILY BEFORE FOOD 2024 active Not Available Not Available Not Avai lable cyanocobala min (vit B-12) 1,000 mcg/mL injection solution Inject 1 mL every month by subcutane ous route. 02/24 completed Not Available Not Available Not Available ferrous sulfate 325 mg (65 mg iron) tablet TAKE 1 TABLET BY MOUTH TWICE A DAY 2024 active Not Available Not Available Not Avai lable Gentle Laxative (bisacodyl) 5 mg tablet,sri yed release 03/04 completed Not Available Not Available Not Available nicotine 21 mg/24 hr daily transdermal patch APPLY 1 PATCH TO THE SKIN ONCE A DAY 08/31 completed Not Available Not Available Not Available gabapentin 300 mg capsule TAKE 1 CAPSULE BY MOUTH THREE TIMES A DAY 08/31 completed Not Available Not Available Not Available cephalexin 500 mg tablet TAKE 1 TABLET BY MOUTH EVERY 12 HOURS 02/22 completed Not Available Not Available Not Available montelukast 10 mg tablet TAKE 1 TABLET BY MOUTH EVERY DAY 01/07 completed Not Available Not Available Not Available hydroxyzine HCl 25 mg tablet TAKE 1 TABLET 3 TIMES A DAY BY ORAL ROUTE NEEDED. active Not Available Not Available No t Available gabapentin 100 mg capsule TAKE 2 CAPSULES BY MOUTH 3 TIMES A DAY 08/31 completed Not Available Not Available Not Available sodium chloride 0.9 % intravenous solution 1000 mL by intraven. route. 04/18 completed Not Available Not Available Not Available irbesartan 150 mg tablet Take 1 tablet every day by oral route as directed, for hypertens ion. 09/08 completed Not Available Not Available Not Available levofloxaci n 500 mg tablet active Not Available Not Available Not Available oxycodone-a cetaminophe n 7.5 mg-325 mg tablet 08/19 completed Not Available Not Available Not Available methylpredn isolone 4 mg tablets in a dose pack TAKE 6 TABLETS ON DAY 1 DIRECTED ON PACKAGE AND DECREASE BY 1 TAB EACH DAY FOR A TOTAL OF 6 DAYS 08/31 completed Not Available Not Available Not Available ondansetron 4 mg disintegrat ing tablet DISSOLVE 1 TABLET IN MOUTH EVERY 8 HOURS 02/24 completed Not Available Not Available Not Available cefdinir 300 mg capsule TAKE 1 CAPSULE BY MOUTH EVERY 12 HOURS 01/07 completed Not Available Not Available Not Available sertraline 50 mg tablet TAKE 1/2 TABLET DAILY FOR 1 WEEK THEN TAKE 1 TABLET DAILY 08/16 completed Not Available Not Available Not Available naproxen 500 mg tablet TK 1 T PO BID PRN active Not Available Not Available No t Available amoxicillin 875 mg-potassiu m clavulanate 125 mg tablet TAKE 1 TABLET BY MOUTH TWICE DAILY active Not Available Not Available No t Available buspirone 15 mg tablet Take 1 tablet 3 times a day by oral route as directed. 08/31 completed Not Available Not Available Not Available oxycodone 5 mg tablet TAKE 1 TABLET BY MOUTH EVERY 6 HOURS NEEDED FOR PAIN 02/24 completed Not Available Not Available Not Available hydroxyzine pamoate 25 mg capsule TAKE 1 CAPSULE BY MOUTH EVERY 4 HOURS NEEDED FOR ANXIETY 08/31 completed Not Available Not Available Not Available bupropion HCl SR 200 mg tablet,12 hr sustained-r elease active Not Available Not Available Not Available hydromorpho ne 1 mg/mL injection syringe 1 mg by injection route. 04/18 completed Not Available Not Available Not Available azithromyci n 500 mg tablet TK 2 TS PO ONCE UTD active Not Available Not Available No t Available metaxalone 800 mg tablet TK 1 T PO TID PRN active Not Available Not Available No t Available Zetia 10 mg tablet active Not Available Not Available Not Available aripiprazol e 10 mg tablet TAKE 1 TABLET BY MOUTH ONCE DAILY 08/31 completed Not Available Not Available Not Available aripiprazol e 15 mg tablet TAKE 1 TABLET BY MOUTH EVERY DAY active Not Available Not Available No t Available atomoxetine 40 mg capsule TAKE 1 CAPSULE BY MOUTH EVERY DAY IN THE MORNING 09/08 completed Not Available Not Available Not Available bupropion HCl XL 300 mg 24 hr tablet, extended release 1 tablet by mouth once daily 08/31 completed Not Available Not Available Not Available bupropion HCl XL 150 mg 24 hr tablet, extended release TAKE 1 TABLET BY MOUTH EVERY DAY 08/05 completed Not Available Not Available Not Available hydrocodone 7.5 mg-acetamin ophen 325 mg/15 mL oral solution active Not Available Not Available Not Available nitrofurant oin monohydrate /macrocryst als 100 mg capsule TAKE 1 CAPSULE BY MOUTH EVERY 12 HOURS FOR 7 DAYS 02/04 completed Not Available Not Available Not Available duloxetine 30 mg capsule,del ayed release 08/05 completed Not Available Not Available Not Available duloxetine 60 mg capsule,del ayed release TAKE 1 CAPSULE BY MOUTH EVERY DAY 08/31 completed Not Available Not Available Not Available Cymbalta 20 mg capsule,del ayed release Take 60 mg by oral route. 02/24 completed Not Available Not Available Not Available lactulose 10 gram/15 mL oral solution TAKE 30 ML BY MOUTH DAILY 02/24 completed Not Available Not Available Not Available vitamin B complex active Not Available Not Available Not Available quetiapine 50 mg tablet active Not Available Not Available Not Available Nascobal 500 mcg/spray nasal spray active Not Available Not Available Not Available fenofibrate nanocrystal lized 145 mg tablet active Not Available Not Available No t Available ondansetron HCl (PF) 4 mg/2 mL injection solution 4 mg by injection route. 04/18 completed Not Available Not Available Not Available oxycodone 10 mg tablet Take 1 tablet every 4 hours by oral route as needed for pain. active Not Available Not Available No t Available Viibryd 40 mg tablet active Not Available Not Available No t Available Vraylar 3 mg capsule TAKE 1 CAPSULE BY MOUTH EVERY DAY 02/24 completed Not Available Not Available Not Available Vitals Date Recorded Body mass index (BMI) Body height Oxygen saturation Oxygen saturation in Arterial blood by Pulse oximetry Heart rate Body temperature Body weight Systolic blood pressure Diastolic blood pressure Provider Name and Address Organization Details Last Updated DateTime 2 36.3 kg/m2 172.72 cm 98 % 98 % 100 /min 97.7 [degF] 507605. 58 g 158 mm[Hg] 98 mm[Hg] Not Available [facility] 3 02:44:11 Date Recorded Body mass index (BMI) Body height Oxygen saturation Oxygen saturation in Arterial blood by Pulse oximetry Heart rate Body temperature Body weight Systolic blood pressure Diastolic blood pressure Provider Name and Address Organization Details Last Updated DateTime 2 36.6 kg/m2 172.72 cm 97 % 97 % 82 /min 97.4 [degF] 012043. 76 g 130 mm[Hg] 82 mm[Hg] Not Available [facility] 3 02:44:12 Date Recorded Body height Body mass index (BMI) Body weight Body temperature Heart rate Oxygen saturation Oxygen saturation in Arterial blood by Pulse oximetry Systolic blood pressure Diastolic blood pressure Provider Name and Address Organization Details Last Updated DateTime 4 172.72 cm 35.1 kg/m2 668027. 84 g 96.1 [degF] 107 /min 96 % 96 % 130 mm[Hg] 82 mm[Hg] Leilani Edwards MA [employer] 4 12:18:13 Date Recorded Body height Body mass index (BMI) Body weight Heart rate Oxygen saturation Oxygen saturation in Arterial blood by Pulse oximetry Systolic blood pressure Diastolic blood pressure Provider Name and Address Organization Details Last Updated DateTime 5 172.72 cm 35.9 kg/m2 230618. 8 g 94 /min 97 % 97 % 144 mm[Hg] 84 mm[Hg] LINDA Vaz [employer] 5 14:47:15 Date Recorded Body height Body mass index (BMI) Body weight Body temperature Heart rate Oxygen saturation Oxygen saturation in Arterial blood by Pulse oximetry Systolic blood pressure Diastolic blood pressure Provider Name and Address Organization Details Last Updated DateTime 5 172.72 cm 35.7 kg/m2 628146. 21 g 97.7 [degF] 80 /min 98 % 98 % 110 mm[Hg] 72 mm[Hg] Leilani Edwards MA [employer] 5 12:01:27 Social History Question Answer Notes LastModified by Organizat ion Details LastModified Time Tobacco Smoking Status Never Smoker Not Available [facility] 09/10/2022 02:35:31 Do You Have An Advance Directive? No [id number] Information not available 09/10/2022 What Is Your Level Of Alcohol Consumption? None [id number].55695 [id number] Information not available 09/10/2022 Are You Blind Or Do You Have Difficulty Seeing? No MIGRATION.41597 71656 Information not available 09/10/2022 What Is Your Level Of Caffeine Consumption? Heavy MIGRATION.87173 82101 Information not available 09/10/2022 How Much Tobacco Do You Chew? None MIGRATION.14127 10135 Information not available 09/10/2022 What Is Your Code Status? Full Code [id number].77455 [id number] Information not available 09/10/2022 In The 14 Days Before Symptom Onset, Have You Had Close Contact With A Laboratory-confi rmed COVID-19 While That Case Was Ill? No [id number].43221 67512 Information not available 09/10/2022 In The 14 Days Before Symptom Onset, Have You Had Close Contact With A Person Who Is Under Investigation For COVID-19 While That Person Was Ill? No MIGRATION.18368 14165 Information not available 09/10/2022 Are You Deaf Or Do You Have Serious Difficulty Hearing? No MIGRATION.74260 91751 Information not available 09/10/2022 What Type Of Diet Are You Following? REGULAR MIGRATION.37989 [id number] Information not available 09/10/2022 Which Illicit Or Recreational Drugs Have You Used? Marijuana MIGRATION.99792 30240 Information not available 09/10/2022 Do You Or Have You Ever Used E-cigarettes Or Vape? Never Used Electronic Cigarettes MIGRATION.14303 22584 Information not available 09/10/2022 What Is The Highest Grade Or Level Of School You Have Completed Or The Highest Degree You Have Received? 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 No MIGRATION.42854 15082 Information not available 09/10/2022 Are There Any Guns Present In Your Home? No MIGRATION.13171 42322 Information not available 09/10/2022 Do You Use Insect Repellent Routinely? No Information not available 09/08/2024 Where Do You Live? [place] MIGRATION.43005 27284 Information not available 09/10/2022 Do You Have A Medical Power Of Registered Dietician? No MIGRATION.63504 77583 Information not available 09/10/2022 What Was The Date Of Your Most Recent Tobacco Screening? 09/08/2024 Information not available 09/08/2024 Do You Have Any Pets? Yes Information not available 09/08/2024 What Is Your Relationship Status? MIGRATION.52981 12207 Information not available 09/10/2022 Do You Use Your Seat Belt Or Car Seat Routinely? Yes MIGRATION.43237 04281 Information not available 09/10/2022 Do You Have Smoke And Carbon Monoxide Detectors In Your Home? Yes Information not available 09/08/2024 Are You Passively Exposed To Smoke? No Information not available 09/08/2024 Do You Or Have You Ever Used Smokeless Tobacco? Never Used Smokeless Tobacco MIGRATION.10721 [id number] Information not available 09/10/2022 Are There Any Smokers In Your House? No Information not available 09/08/2024 Do You Feel Stressed (tense, Restless, Nervous, Or Anxious, Or Unable To Sleep At Night)? [id number] MIGRATION.57995 16495 Information not available 09/10/2022 Do You Use Sunscreen Routinely? Yes MIGRATION.62823 10468 Information not available 09/10/2022 Have You Recently Traveled Abroad? No MIGRATION.30223 77515 Information not available 09/10/2022 Do You Have Any Dietary Restrictions? No MIGRATION.40515 43169 Information not available 09/10/2022 Sex: Male Functional Status Question Answer Note LastModified by Organizat ion Details LastModified Time Do you have difficulty walking or climbing stairs? No [id number].[id number] 026 Information not available 09/10/2022 Do you have transportation difficulties? No MIGRATION.0553010 026 Information not available 09/10/2022 Are you able to walk? YESWOREST MIGRATION.[id number] 026 Information not available 09/10/2022 Do you have difficulty doing errands alone? No MIGRATION.[id number] 026 Information not available 09/10/2022 Are you able to care for yourself? Yes MIGRATION.[id number] 026 Information not available 09/10/2022 Do you have difficulty dressing or bathing? No MIGRATION.9474183 026 Information not available 09/10/2022 What is your exercise level? Occasional MIGRATION.[id number] 026 Information not available 09/10/2022 Mental Status Question Answer Note LastModified by Organizat ion Details LastModified Time Do you have difficulty concentrating, remembering or making decisions? No [id number].[id number] Information not available 09/10/2022 Family History Relationship Description Onset Age of this Age Resolved Age Notes LastModified by Organization Details LastModified Time Mother Diabetes mellitus [id number] Not available 09/10/2022 02:41:32 Father Diabetes mellitus [id number] Not available 09/10/2022 02:41:32 Father Hypertensive disorder MIGRATION.200 [id number] Not available 09/10/2022 02:41:32 Unspecified Relation Family history of Depression MIGRATION.227 [id number] Not available 09/10/2022 02:41:32 Unspecified Relation Family history of Cardiovascul ar disease MIGRATION.[id number] Not available 09/10/2022 02:41:32 Medical History Condition Response BLINDNESS N NERVE DISEASE N RHEUMATIC FEVER N BLADDER PROBLEMS N KIDNEY STONES Y MRSA N OTHER # 1 N POLIO N LUNG DISEASE/DISORDER N RADIATION / CHEMOTHERAPY N COPD N Other # 2 N BLOOD DISEASES N SURGERY N EAR OR HEARING PROBLEMS N MUMPS N DEPRESSION (INCLUDING POST ) Y BOWEL PROBLEMS N STROKE/TIA N ULCERS N BENIGN PROSTATIC HYPERPLASIA N MEASLES N MYOCARDIAL INFARCTION N OBESITY Y GERD/NAUSEA N ANEURYSM N URINARY/BLADDER/KIDNEY PROBLEMS N CORONARY ARTERY DISEASE (CAD) N ADDICTION CONCERNS N Impotence N ENDOMETRIOSIS N USE OF BLOOD THINNERS N SKIN PROBLEMS N GASTROINTESTINAL DISORDER N PARATHYROID DISEASE N PERIPHERAL VASCULAR DISEASE N MUSCLE,JOINT OR BONE PROBLEMS N GASTROINTESTINAL BLEEDING N BLOOD CLOTS N ASTHMA N CATARACTS N ERECTILE DYSFUNCTION N VARICOSITIES N GI PROBLEMS N CHF N Low Testosterone N INFERTILITY N AIDS/HIV N FRACTURES Y CHEMOTHERAPY / RADIATION N LIVER DISEASE N MALE HYPOGONADISM N HYPERTENSION Y Deficiency N ANXIETY DISORDER Y BLOOD TRANSFUSION N ANEMIA/BLOOD DISORDER Y CHRONIC EAR INFECTIONS N BRONCHITIS N TUBERCULOSIS N GLAUCOMA N FOOT PROBLEM N DIVERTICULITIS N SLEEP APNEA Y CHICKENPOX N INFECTIOUS DISEASE N PROSTATE N HEART ARRHYTHMIA N INSOMNIA N HIGH CHOLESTEROL / HYPERLIPIDEMIA Y HYPERTHYROIDISM N EYE PROBLEMS N NEUROLOGICAL PROBLEMS N EDEMA N CHRONIC PAIN SYNDROME N HYPOTHYROIDISM N CONSTIPATION N CAROTID BLOCKAGE N BACK / NECK PROBLEMS N HAVE YOU BEEN HOSPITALIZED OR SEEN IN [facility] IN THE PAST YEAR ? N ATHEROSCLEROSIS N BREAST PROBLEMS N DIALYSIS N ECZEMA N HISTORY WITH COMPLICATIONS WITH ANESTHES IA ? N OSTEOPOROSIS N ARTHRITIS N APPENDICITIS N DIABETES, TYPE N BAD TEETH N ENT N SEASONAL ALLERGIES Y HEARTBURN / REFLUX N AUTISM SPECTRUM DISORDER (ASD) N HEPATITIS / LIVER DISEASE N GOUT N SLEEP DISORDER N ALZHEIMER'S DISEASE N Brain Problems N HERPES N DEMENTIA N SEIZURES/EPILEPSY N HEADACHES/MIGRAINES N VASCULAR DISEASE N PACEMAKER N Blood Disorder N DIZZINESS N KIDNEY DISEASE N HEART DISEASE/HEART PROBLEMS N MULTIPLE SCLEROSIS N CARDIAC ARRHYTHMIA N CANCER: SPECIFY N Gall Stones N ATRIAL FIBRILLATION N PULMONARY EMBOLISM N AUTOIMMUNE DISEASE N Immunizations Vaccine Type Date Status Note Provider Nam e and Address Organization Details Recorded Time COVID-19, mRNA, LNP-S, PF, 100 mcg/0.5mL dose or 50 mcg/0.25mL dose 1 completed Lulu Bunch APRN [address], [place], [address], [employer] 02/25/2024 12:23:31 COVID-19, mRNA, LNP-S, PF, 100 mcg/0.5mL dose or 50 mcg/0.25mL dose 1 completed Lulu Bunch APRN [address], [address], [place], [address], [employer] 02/25/2024 12:23:31 Tdap 1 completed Not Available [facility] 04/21/2023 00:45:58 Influenza, MDCK, quadrivalent, PF 2 completed Lulu Bunch APRN [address], [address], [place], [address], [employer] 02/25/2024 12:23:30 COVID-19, mRNA, LNP-S, PF, 30 mcg/0.3 mL dose 1 completed Lulu Bunch APRN [address], [address], [place], [address], [employer] 02/25/2024 12:23:31 COVID-19, mRNA, LNP-S, PF, 30 mcg/0.3 mL dose 1 completed MARLYN Arreola [address], [place], [address], [employer] [facility] [employer] [facility] 02/25/2024 12:23:31 COVID-19, mRNA, LNP-S, PF, 30 mcg/0.3 mL dose 1 completed MARLYN Arreola [address], [place], [address], [employer] [facility] [employer] [facility] 02/25/2024 12:23:31 COVID-19, mRNA, LNP-S, PF, 30 mcg/0.3 mL dose, milad-sucrose 2 completed Lulu Bunch APRN [address], [address], [place], [address], [employer] [facility] [employer] 02/25/2024 12:23:31 tetanus toxoid, unspecified formulation 1 completed MARLYN Arreola [address], [place], [address], [employer] [facility] [employer] 02/25/2024 12:23:31 influenza, unspecified formulation 4 completed MARLYN Arreola [address], [place], [address], [employer] [facility] [employer] [facility] 02/25/2024 12:23:31 Tdap 3 completed MARLYN Arreola [address], [place], [address], [employer] [facility] [employer] 02/25/2024 12:23:31 Hep A, adult 0 completed MARLYN Arreola [address], [place], [address], [employer] [facility] [employer] 02/25/2024 12:23:31 Past Encounters Encounter ID Performer Location Encounter Start Date Encounter Closed Date Diagnosis/Indication Diagnosis SNOMED-CT Code Diagnosis ICD10 Code Diagnosis Note [id number] [facility] [place] [place] Internal Med [address] [place] [address] 10/04/2020 00:00:00 10/04/2020 17:49:40 [id number] [facility] [place] [address] [place] [address] 10/18/2020 00:00:00 10/18/2020 16:21:21 [id number] [facility] Internal Med [address] [address] 11/06/2020 00:00:00 11/06/2020 13:12:38 [id number] [facility] [place] [address] [place] [address] 12/18/2020 00:00:00 12/18/2020 15:40:27 [id number] [facility] [address] [facility] [address] [address] 02/04/2021 00:00:00 02/04/2021 19:26:16 [id number] [facility] [address] [facility] [address] [address] 03/04/2021 00:00:00 03/04/2021 17:29:41 [id number] [facility] [address] [address] 03/04/2021 00:00:00 03/04/2021 13:00:34 [id number] [facility] [address] [address] 08/05/2021 00:00:00 08/05/2021 10:37:55 [id number] [facility] [address] [address] 08/19/2021 00:00:00 08/19/2021 11:40:48 [id number] [facility] [place] [address] [place] [address] 01/07/2022 00:00:00 01/07/2022 15:31:24 [id number] [facility] Internal Med [facility] [address] [address] 02/14/2022 00:00:00 02/14/2022 17:25:53 [id number] [facility] Internal Med [facility] [address] [address] 03/18/2022 00:00:00 03/18/2022 10:46:23 [id number] Lulu Bunch APRN [facility] Internal Med [facility] [address] , [address] [address] 02/25/2024 12:04:31 02/25/2024 13:17:19 History of chest pain 5432208650 8487980 Z87.898 Ulcer of esophagus 51862 009 K22.10 Chronic pain 22591939 G8 9.29 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 [address] [place], [place] [address] [address] 07/27/2024 17:01:54 07/28/2024 16:37:15 [id number] Lyubov Corrales [facility] [address] [place], [place] [address] [address] 08/11/2024 15:19:29 08/11/2024 15:59:23 [id number] [facility], [facility] [address] [place] [address] 08/25/2024 14:22:58 08/25/2024 15:55:23 [id number] Claudia Coker MD [facility] [place] [place] General Surgery [address] [place] [address] 08/31/2024 14:34:38 08/31/2024 15:22:13 Hepatitis B antibody present 886855305 R76.8 [id number] Lyubov Corrales, [facility] [address] [place] [address] 09/22/2024 15:20:21 09/22/2024 16:18:18 Health Concerns Section Related Observation LastModified by Organization Detai ls LastModified Time None Recorded Concern Status LastModified by Organization Details LastModified Time None Recorded Advance Directives Directive N: Payers Encounter Date Sequence Insurance Name Policy Number Policy Goodman Covered Member ID Goodman Member ID Guarantor Name 02/25/2024 1 [facility] [id number] Arnol Walters [id number] Arnol Mike Selena 08/31/2024 1 [facility] [id number] Selam Walters [id number] Arnol Mike Chloeazkolby 09/08/2024 1 [facility] [id number] Selam Coronaazari [id number] Arnol Mike Walters Notes Date Note Type Note Provider Name and Address Organization Details Recorded Time 02/25/2024 text/html Arnol presents today to establish care as a new patient. Significant other in room with patient, gives this provider a list of issues that patient has been having which is mainly psychological in nature. Patient admits to suicidal ideations, he does not have a plan at this time and denies those thoughts at this time. Significant other states that patient does not remember events when angry/upset, example this morning, he asked how his mom is doing and did not remember that his mother has been for about 3 years. Lulu Bunch, SHIP JOINER [address] [facility] [address], [place], [address], [facility] [employer] 02/25/2024 13:13:38 08/31/2024 text/html ARNOL WAS SEEN IN THE OFFICE TODAY FOR HEP B EVALUATION . PT WAS TOLD THAT HE HAS ACTIVE HEPATITIS B INFECTION . PT HEP S AB WAS 57.80 Claudia Coker MD [address], [place], [address], [facility] [employer] [facility] 08/31/2024 16:11:43 09/08/2024 text/html Arnol presents today for 3 month follow up. He states that his psychiatrist is asking for labs to be drawn and a sleep study. He states that he will see pain management in two weeks. 02/25/2024supriya presents today to establish care as a new patient. Significant other in room with patient, gives this provider a list of issues that patient has been having which is mainly psychological in nature. Patient admits to suicidal ideations, he does not have a plan at this time and denies those thoughts at this time. Significant other states that patient does not remember events when angry/upset, example this morning, he asked how his mom is doing and did not remember that his mother has been for about 3 years. Lulu Bunch APRN [address], [place], [address], [facility] [employer] [facility] 09/08/2024 12:24:18
== END 2024-10-06 11:44 | disposition home or self-care (01) ==
LOC: ANHCSM 07:53
PROVIDERS: PCP Internal Medicine; Visit Provider Nurse Practitioner Family
DX: G47.30 Sleep apnea, unspecified (principal)
CPT/HCPCS: 95800